=== PATIENT | male | born 1965 | race Caucasian/White ===

== ENCOUNTER 2018-05-08 09:49 | Day surgery (SDC) | payer OTHER, SELFPAY ==
[2018-05-08] VITALS (7 sets, daily range): BP systolic 116–185; BP diastolic 84–131; PULSE 80–92; RESP 16–20; TEMP 36.3–37.3; O2SAT 93–97
--- NOTE | 2018-05-08 06:29 | W.COLOREPORT ---
Date of service: 05/08/18 Colonoscopy Report Date of procedure: 05/08/18 Pre-op diagnosis general: Colon Cancer screening Post-op diagnosis procedure note: other (3 polyps, diverticulosis) Procedure: Colonoscopy with polypectomy by forceps and snare Surgeon: Tona Palomo Anesthesia proc note operative: MAC (Keturah Stein CRNA) Estimated blood loss (mL): 5 Pathology: other (3 polyps) Complications: None Disposition: observation Indications: Mr. Sinha is a pleasant 53 year old male seen in the office to discuss a screening colonoscopy. Risks, benefits and complications were reviewed and he wished to proceed. No guarantees were given or implied. Prep: Miralax/Dulcolax Procedure Start Time: 13:46 Procedure End Time: 14:48 Retraction Time: 53 minutes Findings: 3 polyps. One polyp at 45 cm was large and could have cancer. Diverticulosis Procedure Description: After informed consent was obtained the patient was taken to the procedure room and placed in a left decubitous position. Monitors were applied and a time out was done. The patients name, date of , procedure, allergies to medications and metal in their body was reviewed. The patient was then sedated. Once sedated and comfortable a rectal exam was done. External exam was normal. Internal exam revealed a normal sphincter tone and no palpable masses. The prostate normal. The scope was then introduced and retroflexed. No internal hemorrhoids were identified. The scope was then advanced to the cecum without difficulty. The TI and appendiceal orifice were identified. The prep was adequate. The scope was then slowly retracted over 53 minutes back into the rectum. One sessile polyp was remove in the proximal transverse colon with a cold forceps. The second polyp was a large pedunculated polyp in the descending colon with a hot snare. The area was tattooed with 3 cc of blue dye. Another polyp was removed in the descending colon with a cold forceps. The scope was removed and the patient was woken up and taken back to Same day surgery in stable condition. The patient tolerated the procedure well and there were no immediate complications. Follow up: Depends on final pathology
--- NOTE | 2018-05-08 06:30 | PDOC.DSDIS_ITS ---
Discharge Plan Disposition Patient Disposition: HOME Condition: Good Discharge Details Reason For Visit: Colonoscopy Attending Provider: Tona Palomo Primary Care Provider: Pricilla Sevilla Home Meds and New Rx's Prescriptions: Continue No Known Home Meds RF: 0 Discharge Instructions Instructions: Colonoscopy (DC), Diverticulosis (DC), Colorectal Polyps (DC) Additional Instructions: Findings: 3 polyps. One was large and may contain cancer Diverticulosis Follow up: depends on final pathology New Medication: none Please call if you develop: fevers >101.5 Nausea or Vomiting Abdominal pain that is not transient 1. Because there will be medication in your system for the next 24 hours, you may feel a little sleepy. Your coordination will be affected. Therefore: a. Do not drive or operate dangerous equipment for 24 hours. b. Do not drink alcohol beverages for 24 hours (not even beer). c. Plan to go home and rest for the day. 2. Generally there are no restrictions on your activity after a day or so has gone by, but you may feel a bit fatigued for a few days. 3 After you arrive home you may have a light meal and return to a normal diet as you can tolerate it without feeling sick to your stomach. 4. After surgery, you may feel pain or discomfort. This should be only transient , but if it persists please contact your doctor. 5. If there are any questions regarding the findings of your procedure, please feel free to contact your doctor. 6. If you are unable to contact your doctor with a problem, contact the ospital at [phone]. 7. Continue all your regular medications unless directed otherwise. I understand the above instructions and have no questions. Signature of Patient or Responsible Adult Escort Date/Time Name of Responsible Adult Escort Signature of Nurse Date/Time Activity:: Activity as Tolerated Diet:: As Tolerated Discharge Orders Discharge Orders: Discharge Order (Routine); Ordered 05/08/18 Ordered By: Tona Palomo DS: Diagnosis Discharge Diagnosis (1) Colorectal polyps: Status: Acute (2) Diverticulosis: Status: Acute
[2018-05-08] MEDS: Lactated Ringers 1,000 ML 80 ML IV ×2 (10:30→14:37)
--- NOTE | 2018-05-08 14:00 | BOWEL_PTH ---
PATIENT: Damon Sinha LOC: [facility] U#:[id number] AGE/SX: 53/M ROOM: RE05/08/[address]: Tona Plaomo MD : [id number] BED: DIS: 05/08/2018 SPEC #: [id number] RECD: 05/08/18 17:55 STATUS: FRED[facility] REQ #: [id number] NEHA: 05/08/18 14:[address]: Tona Palomo DEPT: Surgical Specimen RECD BY: Skye Bello ENTERED: 05/08/18 17:56 SP TYPE: Bowel OTHR DR: Pricilla Sevilla Tissues: 1 - BIOPSY BOWEL 2 - BIOPSY BOWEL 3 - BIOPSY BOWEL Procedures: GROSS AND MICRO LEVEL 4 Comments: [id number]
[2018-05-08] MEDS: Endoscopic Tattoo 5 ML SYR IJ (14:47)
[2018-05-08] MEDS: Hyoscyamine 0.125 MG SL/ORAL/CHEW SL (16:43)
[2018-05-08] MEDS: Ketorolac 30 MG/ML VIAL IVP (17:06)
--- NOTE | 2018-05-08 17:25 | DI.RAD_ITS ---
SYMPTOMS/DIAGNOSIS: ABDOMINAL PAIN S/P COLONOSCOPY WITH POLYPECTOMY FLAT AND DECUBITUS VIEWS OF THE ABDOMEN: The colon is distended with air, consistent with recent colonoscopy. There is some air within the small bowel as well. The descending colon is somewhat decompressed. No free air is seen. IMPRESSION: Colonic distention. No evidence of free air.
--- NOTE | 2018-05-08 18:08 | DI.VRAD_ITS ---
EXAM: XR Abdomen, 2 Views EXAM DATE/TIME: 05/08/2018 5:25 PM CLINICAL HISTORY: 53 years old, male; Pain; Abdominal pain; Patient HX: Abdominal pain S/P colonoscopy with polypectomy TECHNIQUE: Frontal view of the abdomen/pelvis with upright view of the abdomen. COMPARISON: No relevant prior studies available. FINDINGS: Gastrointestinal tract: The colon is distended with air. Right colon is distended over 12 cm with air there are multiple air-fluid levels. Differential includes ileus versus obstruction. Intraperitoneal space: See Gastrointestinal Tract Finding. Bones/joints: Unremarkable for age. IMPRESSION: The colon is distended with air. Right colon is distended over 12 cm with air there are multiple air-fluid levels. Differential includes ileus versus obstruction. Dictated and Authenticated by: Tamie Omalley MD. Ordering:CEASAR SUAREZ MD
--- NOTE | 2018-05-08 18:08 | W.PM.PROGNOT ---
Assessment and Plan (1) Abdominal pain: Current visit: Yes Status: Acute A\\ Cramping abdominal pain s/p Colonoscopy with polypectomy of 2 large polyps. ABDO- XRAY showed no free air to my viewing. BP decreased on discharge to 154/90 P 84 P\\ Will get the patient to go home. I have asked him to watch for increased abdominal pain, N/V and to please come back to the ER if this happens and not to wait. One of the polyps was large enough that there could be a small perforation. If he returns will nee a ct scan of the abdomen and pelvis to look for free air. Subjective Interval history since last seen: Patient started out complaining of 9/10 cramping abdominal pain. he did pass flatus and pain slowly decreased to 2/10. No N/V Exam GI Inspection: normal to inspection Palpation: soft and tender (mild RLQ tenderness and LLQ. NO guarding) Objective Objective Clinical Data: Vital Signs Temperature 97.9 F 05/08/18 17:36 Pulse 89 05/08/18 17:36 Pulse Rhythm Regular 05/08/18 10:04 Respiratory Rate 18 05/08/18 17:36 Respiratory Depth Normal 05/08/18 10:04 Blood Pressure 156/106 H 05/08/18 17:36 Pulse Oximetry 97 05/08/18 17:36 Oxygen Delivery Method Room Air 05/08/18 17:36 Oxygen Flow Rate 0 05/08/18 10:04 Pain Level 3 05/08/18 17:36 Intake & Output 05/07/18 05/08/18 05/08/18 23:59 11:59 23:59 Intake Total 1110 / 1110 Balance 1110 / 1110 Weight 239 lb 13.807 oz Intake: IV 1000 / 1000 Oral 110 / 110 Other: Emesis Description None
== END 2018-05-08 18:17 | disposition home or self-care (01) ==
PROVIDERS: PCP Nurse Practitioner Family; Visit Provider Surgery
PROC: 0DJD8ZZ Inspection of Lower Intestinal Tract, Via Natural or Artificial Opening Endoscopic (ICD-10-PCS; CPT 45378; principal; 2018-05-08 11:15)
DX: Z12.11 Encounter for screening for malignant neoplasm of colon (principal); D12.3 Benign neoplasm of transverse colon; D12.4 Benign neoplasm of descending colon; K63.5 Polyp of colon; K21.9 Gastro-esophageal reflux disease without esophagitis; F10.10 Alcohol abuse, uncomplicated; F17.200 Nicotine dependence, unspecified, uncomplicated; K57.30 Diverticulosis of large intestine without perforation or abscess without bleeding
CPT/HCPCS: 45380; 45381; 45385; 88305; NC; 74019; J1885; J3010; J3490

== ENCOUNTER 2018-05-10 09:21 | Inpatient (IN) | payer OTHER, SELFPAY ==
[2018-05-10] VITALS (11 sets, daily range): BP systolic 127–164; BP diastolic 72–99; PULSE 83–104; RESP 18–24; TEMP 36.7–39; O2SAT 93–98
--- NOTE | 2018-05-10 09:39 | DI.CT_ITS ---
SYMPTOMS/DIAGNOSIS: ABDOMINAL PAIN [address] OF THE ABDOMEN AND PELVIS: There are no prior comparison exams. Images were performed from the lung bases through the ischial tuberosities after IV and without oral contrast. Free air is noted, greatest in the upper abdomen. There is no focal area of bowel wall thickening. There is no free fluid. There is mild dilatation of small bowel but no definite obstruction. The appendix appears normal and projects anterior at the level of the iliac crest. Numerous diverticula are noted. A right- sided aortic arch is noted. The liver, gallbladder, spleen, pancreas, adrenals and kidneys as well as bladder and prostate are unremarkable. IMPRESSION: Free air. There is diverticulosis, but no focal area of perforation or wall thickening is demonstrated.
--- NOTE | 2018-05-10 09:44 | W.ED.GENAD ---
Discharge Plan Discharge Details Chief Complaint: Abd Prob Reason For Visit: PERFORATED BOWEL Admit Date/Time: 05/10/18 12:07 Admit Provider: Loc Rhoades Attending Provider: Loc Rhoades Primary Care Provider: Pricilla Sevilla ED Provider: Jesus Enriquez Discharge Data Discharge Date/Time-TO BE ENTERED AT DEPARTURE: 05/10/18 17:28 Medical Decision Making 10:20 --53-year-old male presents 2 days status post colonoscopy and polypectomy here with diffuse abdominal pain that is worsening. Peritoneal findings including guarding and rebound tenderness. Concern for perforated bowel. I called and spoke with Dr. Rhoades to alert him to condition. Will obtain stat CT abdomen and pelvis. Dilaudid IV for pain. -- CT interpreted by radiology: free air noted. Dr. Rhoades contacted and will admit the patient. Will start antibiotics. Bridging orders requested to the floor. Care transitioned to Dr. Rhoades at time of admission. -- Labs reviewed. HPI General Mode of arrival: ambulatory. Date/Time Provider Initiated Documentation: 05/10/18 09:38. Limitations to Documentation: no limitations. Information obtained by: patient. HPI Narrative: 53-year-old male with history of colorectal polyps, presents 2 days status post colonoscopy with polypectomy with chief complaint of abdominal pain. Abdominal pain is severe. Constant since yesterday. Localized diffusely but worse on the right abdomen. Pain feels sharp. No associated vomiting. Related Data Home Medications Medication Instructions Recorded Confirmed Unknown [No Known Home Meds] 06/13/16 05/10/18 Allergies Allergy/AdvReac Type Severity Reaction Status Date / Time shrimp Allergy Severe Anaphylaxsi Uncoded 05/10/18 09:31 s General Stated Complaint: Abd Prob KANG: 3 Review of Systems Review of Systems All systems reviewed & are unremarkable except as noted in HPI and below Constitutional Reports fever(s) (subjective) Cardiovascular Denies dyspnea Respiratory Denies dyspnea Gastrointestinal Reports as per HPI Exam Const General: cooperative and uncomfortable [facility] Head: normocephalic and atraumatic Mouth: moist mucous membranes Eyes Conjunctivae: normal conjunctivae Sclera: normal sclerae Neck Neck: trachea midline and supple Resp Auscultation: clear to auscultation bilaterally, no rales, no rhonchi and no wheezes Cardio Jugular venous pressure: no JVD Rate: regular rate and not tachycardic Rhythm: regular rhythm GI Palpation: soft, not firm, guarding, no masses, not rigid and tender (diffuse) Skin General skin exam: no rashes or lesions noted Neuro General: alert, awake, oriented x3 and tone normal Extrem General: no edema Psych Appearance: grossly normal Mental Status: mental status grossly normal Speech and Movement: speech and movement normal Course Vital Signs Temperature 36.7 C 05/10/18 09:25 Pulse 102 H 05/10/18 09:25 Respiratory Rate 24 05/10/18 09:25 Blood Pressure 164/99 H 05/10/18 09:25 Pulse Oximetry 94 L 05/10/18 09:25 Temperature 36.7 C 05/10/18 09:25 Temperature Source Skin 05/10/18 09:25 Pulse 102 H 05/10/18 09:25 Respiratory Rate 24 05/10/18 09:25 Respiratory Effort 05/10/18 09:28 Blood Pressure 164/99 H 05/10/18 09:25 Blood Pressure Position Sitting 05/10/18 09:25 Pulse Oximetry 94 L 05/10/18 09:25 Oxygen Delivery Method Room Air 05/10/18 09:25 Oxygen Flow Rate 0 05/10/18 09:25 Pain Level 05/10/18 09:25
[2018-05-10] MEDS: Lactated Ringers 1,000 ML 1000 ML IV (09:55)
--- NOTE | 2018-05-10 09:57 | ED.GENADUL_ITS ---
Discharge Plan Discharge Details Chief Complaint: Abd Prob Reason For Visit: PERFORATED BOWEL Admit Date/Time: 05/10/18 12:07 Admit Provider: Loc Rhoades Attending Provider: Loc Rhoades Primary Care Provider: Pricilla Sevilla ED Provider: Jesus Enriquez Discharge Data Discharge Date/Time-TO BE ENTERED AT DEPARTURE: 05/10/18 17:28 Medical Decision Making 10:20 --53-year-old male presents 2 days status post colonoscopy and polypectomy here with diffuse abdominal pain that is worsening. Peritoneal findings including guarding and rebound tenderness. Concern for perforated bowel. I called and spoke with Dr. Rhoades to alert him to condition. Will obtain stat CT abdomen and pelvis. Dilaudid IV for pain. -- CT interpreted by radiology: free air noted. Dr. Rhoades contacted and will admit the patient. Will start antibiotics. Bridging orders requested to the floor. Care transitioned to Dr. Rhoades at time of admission. -- Labs reviewed. HPI General Mode of arrival: ambulatory . Date/Time Provider Initiated Documentation: 05/10/18 09:38 . Limitations to Documentation: no limitations . Information obtained by: patient . HPI Narrative: 53-year-old male with history of colorectal polyps, presents 2 days status post colonoscopy with polypectomy with chief complaint of abdominal pain. Abdominal pain is severe. Constant since yesterday. Localized diffusely but worse on the right abdomen. Pain feels sharp. No associated vomiting. Related Data Home Medications Medication Instructions Recorded Confirmed Unknown [No Known Home Meds] 06/13/16 05/10/18 Allergies Allergy/AdvReac Type Severity Reaction Status Date / Time shrimp Allergy Severe Anaphylaxsi Uncoded 05/10/18 09:31 s General Stated Complaint: Abd Prob KANG: 3 Review of Systems Review of Systems All systems reviewed & are unremarkable except as noted in HPI and below Constitutional Reports fever(s) (subjective) Cardiovascular Denies dyspnea Respiratory Denies dyspnea Gastrointestinal Reports as per HPI Exam Const General: cooperative and uncomfortable [facility] Head: normocephalic and atraumatic Mouth: moist mucous membranes Eyes Conjunctivae: normal conjunctivae Sclera: normal sclerae Neck Neck: trachea midline and supple Resp Auscultation: clear to auscultation bilaterally, no rales, no rhonchi and no wheezes Cardio Jugular venous pressure: no JVD Rate: regular rate and not tachycardic Rhythm: regular rhythm GI Palpation: soft, not firm, guarding, no masses, not rigid and tender (diffuse) Skin General skin exam: no rashes or lesions noted Neuro General: alert, awake, oriented x3 and tone normal Extrem General: no edema Psych Appearance: grossly normal Mental Status: mental status grossly normal Speech and Movement: speech and movement normal Course Vital Signs Temperature 36.7 C 05/10/18 09:25 Pulse 102 H 05/10/18 09:25 Respiratory Rate 24 05/10/18 09:25 Blood Pressure 164/99 H 05/10/18 09:25 Pulse Oximetry 94 L 05/10/18 09:25 Temperature 36.7 C 05/10/18 09:25 Temperature Source Skin 05/10/18 09:25 Pulse 102 H 05/10/18 09:25 Respiratory Rate 24 05/10/18 09:25 Respiratory Effort 05/10/18 09:28 Blood Pressure 164/99 H 05/10/18 09:25 Blood Pressure Position Sitting 05/10/18 09:25 Pulse Oximetry 94 L 05/10/18 09:25 Oxygen Delivery Method Room Air 05/10/18 09:25 Oxygen Flow Rate 0 05/10/18 09:25 Pain Level 05/10/18 09:25
[2018-05-10] MEDS: HYDROmorphone 2 MG/ML VIAL 1 MG IVP ×2 (10:00→11:48)
[2018-05-10] MEDS: Omnipaque 350 MG/ML 100 ML BTL IJ (10:01)
[2018-05-10 10:11] LABS: Abs Immature Grans 0.02 k/cumm (0.0-0.09); Absolute Basophil Count 0.03 k/cumm (0.0-0.2); Absolute Eosinophil Count 0.01 k/cumm (0.0-0.7); Absolute Lymphocyte Count 0.65 k/cumm (1.2-3.4); Absolute Monocyte Count 0.75 k/cumm (0.11-0.7); Absolute Neutrophil Count 5.25 k/cumm (1.2-6.7); Basophils % 0.4; Eosinophils % 0.1; HCT 44.3 % (40.0-50.0); HGB 15.4 g/dL (13.5-17.5); Immature Grans % 0.3; Lymphocytes % 9.7; Mean Corp. HGB Concentration 34.8 g/dL (32.0-36.0); Mean Corpuscular Hemoglobin 31.6 pg (27.0-33.0); Mean Corpuscular Volume 90.8 fL (80-95); Mean Platelet Volume 8.3 fL (8.0-11.0); Monocytes % 11.2; Neutrophils % 78.3; Platelet Count 158 x1000/uL (130-400); RBC 4.88 m/cumm (4.50-6.00); RBC Distribution Width 12.3 % (11.8-14.1); White Blood Cell Count 6.71 k/cumm (4.4-10.8)
[2018-05-10 10:24] LABS: ALT 31 U/L (12-78); AST 28 U/L (15-37); Albumin 3.8 g/dL (3.4-5.0); Alkaline Phosphatase 63 U/L (46-116); Anion Gap 9.1 mmol/L (3-11); BUN 10 mg/dL (7-18); Bilirubin, Total 0.7 mg/dL (0.2-1.0); CO2 27.9 mmol/L (21.0-32.0); CREATININE 1.11 mg/dL (0.70-1.30); Chloride 98 mmol/L (98-107); Glucose 128 mg/dL (70-100); Lipase 135 U/L (73-393); Potassium 3.6 mmol/L (3.5-5.1); Sodium 135 mmol/L (136-145); Total Protein 7.4 g/dL (6.4-8.2)
[2018-05-10] MEDS: Lactated Ringers 1,000 ML 125 ML IV ×2 (11:14→12:23)
[2018-05-10] MEDS: PIPERACILLIN/TAZO 4.5 GM in Normal Saline 100 ML IVPB (11:49)
--- NOTE | 2018-05-10 12:59 | HPE_ITS ---
Date of service: 05/10/18 Time of Service: 12:55 Assessment and Plan (1) Bowel perforation: Current visit: Yes Status: Acute A// 53 y/o male 2 days s/p colonoscopy with polypectomy presents with progressively worsening abdominal pain that is associated with upper back and right shoulder pain. CT scan results demonstrate free air with no focal area of perforation or wall thickening. P// Antibiotics- Zosyn Pain management- Scheduled Toradol and tylenol. He also has Dilaudid PRN Diet- NPO; May have ice chips Fluids- [id number] to run at 125ml/hr Hypertensive- Will continue to monitor, most likely secondary to pain DVT Prophylaxis- Jeovanny Reviewed the patient diagnostic findings and physical examination findings with PA , agree with findings and plan as detailed by Leann Reed PA-C. Essentially admission for conservative therapy of bowel rest, abx, pain control , will watch for withdrawal symptoms, and cover nicotene cravings. Did discuss with Mr. Sinha possible failure of conservative therapy, which would require surgical intervention. History of Present Illness Chief Complaint: Abdominal Pain Narrative: 53 y/o male s/p colonoscopy with polypectomy on 05/08/18. Presents with complaints of severe abdominal pain that has progressively worsened over the past two days. Starting this morning this pain was constant and sharp. He also complains of associated upper back and right shoulder pain that is constant but dull ache that increases with coughing and movement. Reports passing flatus and (+) BM this morning which was diarrhea. He denies N/V. Review of Systems Constitutional Reports anorexia, Reports chills and Reports fever(s) Cardiovascular Denies chest pain, Denies chest pain at rest, Reports diaphoresis, Denies dyspnea and Denies dyspnea on exertion Respiratory Denies dyspnea, Denies dyspnea on exertion and Denies wheezing Gastrointestinal Reports abdominal pain, Denies hematochezia, Denies change in bowel habits and Reports diarrhea Musculoskeletal Comments: Upper back and right shoulder pain that increases with movement and coughing. Allergic/Immunologic Denies wheezing Meds Home Medications Medication Instructions Recorded Confirmed Type Unknown [No Known Home Meds] 06/13/16 05/10/18 History Allergies Allergy/AdvReac Type Severity Reaction Status Date / Time shrimp Allergy Severe Anaphylaxsi Uncoded 05/10/18 09:31 s Exam Const General: cooperative and in distress moderate Nutritional Appearance: obese Orientation: alert and oriented x3 Resp Effort & Inspection: normal respiratory effort Auscultation: clear to auscultation bilaterally, no crackles and no wheezes Cardio Jugular venous pressure: no JVD Rate: regular rate and tachycardic Rhythm: regular rhythm Heart Sounds: S1 normal, S2 normal, no click, no gallops and no murmurs GI Inspection: distended Palpation: soft, guarding and tender in the RLQ, in the RUQ and with rebound tenderness Auscultation: normal bowel sounds Results Labs : 05/10/18 09:50 05/10/18 09:50 Laboratory Results - last 24 hr 05/10/18 05/10/18 05/10/18 09:50 09:50 09:50 WBC 6.71 RBC 4.88 Hgb 15.4 Hct 44.3 MCV 90.8 MCH 31.6 MCHC 34.8 RDW 12.3 Plt Count 158 MPV 8.3 Immature Gran % 0.3 Neutrophils % 78.3 Lymphocytes % 9.7 Monocytes % 11.2 Eosinophils % 0.1 Basophils % 0.4 Absolute Neutrophils 5.25 Absolute Lymphocytes 0.65 L Absolute Monocytes 0.75 H Absolute Eosinophils 0.01 Absolute Basophils 0.03 Sodium 135 L Potassium 3.6 Chloride 98 Carbon Dioxide 27.9 Anion Gap 9.1 BUN 10 Creatinine 1.11 Estimated GFR/1.73 m2 >= 60.00 Glucose 128 H Calcium 9.0 Total Bilirubin 0.7 AST 28 ALT 31 Alkaline Phosphatase 63 Total Protein 7.4 Albumin 3.8 Lipase 135 Patient ABO/Rh A Positive Antibody Screen Negative Last Vital Signs Temp 37.0 C 05/10/18 11:13 Pulse 93 H 05/10/18 11:13 Resp 24 05/10/18 11:13 BP 149/93 H 05/10/18 11:13 Pulse Ox 98 05/10/18 11:13
[2018-05-10] MEDS: POTASSIUM CHLORIDE/D5-0.45NACL 1,000 ML 125 MEQ IV ×2 (13:58→22:21)
[2018-05-10] MEDS: Normal Saline Flush 10 ML SYR IVP (15:13)
[2018-05-10] MEDS: Pantoprazole 40 MG VIAL IVP (15:14)
[2018-05-10] MEDS: Ketorolac 30 MG/ML VIAL IVP ×2 (15:15→22:21)
[2018-05-10] MEDS: Acetaminophen 650 MG SUPP PR (15:43)
[2018-05-10] MEDS: Enoxaparin 40 MG/0.4 ML SYR SC (20:04)
[2018-05-10] MEDS: PIPERACILLIN/TAZO 3.375 GM in Normal Saline 50 ML IVPB (20:04)
[2018-05-10] MEDS: HYDROmorphone 2 MG/ML VIAL 0.5 MG IVP (22:53)
[2018-05-11 00:09] VITALS: BP 140/90; PULSE 82; RESP 18; TEMP 37.8; O2SAT 95
[2018-05-11] MEDS: PIPERACILLIN/TAZO 3.375 GM in Normal Saline 50 ML IVPB ×4 (01:51→20:15)
[2018-05-11 03:27] VITALS: BP 143/97; PULSE 80; RESP 20; TEMP 36.9; O2SAT 97
[2018-05-11] MEDS: POTASSIUM CHLORIDE/D5-0.45NACL 1,000 ML 125 MEQ IV ×2 (06:47→17:46)
--- NOTE | 2018-05-11 06:58 | W.PM.PROGNOT ---
Assessment and Plan (1) Bowel perforation: Current visit: Yes Status: Acute A\\ Slight improvement in symptoms since yesterday. Did have one spike in pain at 11 last night. Has been comfortable since then. + BM, + Flatus, Hungry Labs Pending XRay's pending P\\ 1. Diet: Continue NPO for now. Await results of labs and Xray's 2. Activity: up ad marcia 3. Bowelo perforation: Continue with conservative management. Await results of Xray and labs. Subjective Interval history since last seen: Mr. Sinha reports that in the middle of the night is RUQ and Right shoulder pain became severe and was unbearable, he was given Dilaudid with good effect. He reports following this his pain did not return to the level of intensity and that he was able to get some sleep. He reports having a BM this morning. Denies N/V. Exam Const General: cooperative, comfortable and no acute distress Orientation: alert and oriented x3 Resp Effort & Inspection: normal respiratory effort Auscultation: clear to auscultation bilaterally, no crackles and no wheezes Cardio Rate: regular rate and tachycardic Rhythm: regular rhythm Heart Sounds: S1 normal, S2 normal, no click, no gallops and no murmurs GI Inspection: distended Palpation: firm in the LLQ, no guarding and tender in the epigastrum and in the RUQ; with no rebound tenderness Auscultation: normal bowel sounds Objective Objective Clinical Data: Abnormal lab results 05/10/18 05/10/18 Range/Units 09:50 09:50 Absolute Lymphocytes 0.65 L (1.2-3.4) k/cumm Absolute Monocytes 0.75 H (0.11-0.7) k/cumm Sodium 135 L (136-145) mmol/L Glucose 128 H (70-100) mg/dL Vital Signs Temperature 36.9 C 05/11/18 03:27 Temperature Source Tympanic 05/11/18 03:27 Pulse 80 05/11/18 03:27 Pulse Rhythm Regular 05/10/18 19:35 Respiratory Rate 20 05/11/18 03:27 Respiratory Effort 05/10/18 19:35 Blood Pressure 143/97 H 05/11/18 03:27 Blood Pressure Position Sitting 05/10/18 09:25 Pulse Oximetry 97 05/11/18 03:27 Oxygen Delivery Method Room Air 05/11/18 03:27 Oxygen Flow Rate 0 05/11/18 03:27 Pain Level 8 05/10/18 22:53 Comment 05/11/18 03:27 Intake & Output 05/10/18 05/10/18 05/11/18 11:59 23:59 11:59 Intake Total 1000 / 1000 2347.917 / 2347.917 1050 / 1050 Output Total 1250 / 1250 Balance 1000 / 1000 1097.917 / 6632.261 9210 / 1050 Weight 111.13 kg 107.3 kg Intake: IV 1000 / 1000 2347.917 / 2347.917 1050 / 1050 Output: Urine 1250 / 1250 Other: Urine Color Yellow Urine Appearance Clear Stool Size Large Stool Characteristics Brown Voiding Methods Toilet Laboratory Results WBC 6.71 k/cumm (4.4-10.8) 05/10/18 09:50 RBC 4.88 m/cumm (4.50-6.00) 05/10/18 09:50 Hgb 15.4 g/dL (13.5-17.5) 05/10/18 09:50 Hct 44.3 % (40.0-50.0) 05/10/18 09:50 MCV 90.8 fL (80-95) 05/10/18 09:50 MCH 31.6 pg (27.0-33.0) 05/10/18 09:50 MCHC 34.8 g/dL (32.0-36.0) 05/10/18 09:50 RDW 12.3 % (11.8-14.1) 05/10/18 09:50 Plt Count 158 x1000/uL (130-400) 05/10/18 09:50 MPV 8.3 fL (8.0-11.0) 05/10/18 09:50 Immature Gran % 0.3 05/10/18 09:50 Neutrophils % 78.3 05/10/18 09:50 Lymphocytes % 9.7 05/10/18 09:50 Monocytes % 11.2 05/10/18 09:50 Eosinophils % 0.1 05/10/18 09:50 Basophils % 0.4 05/10/18 09:50 Absolute Neutrophils 5.25 k/cumm (1.2-6.7) 05/10/18 09:50 Absolute Lymphocytes 0.65 k/cumm (1.2-3.4) L 05/10/18 09:50 Absolute Monocytes 0.75 k/cumm (0.11-0.7) H 05/10/18 09:50 Absolute Eosinophils 0.01 k/cumm (0.0-0.7) 05/10/18 09:50 Absolute Basophils 0.03 k/cumm (0.0-0.2) 05/10/18 09:50 Sodium 135 mmol/L (136-145) L 05/10/18 09:50 Potassium 3.6 mmol/L (3.5-5.1) 05/10/18 09:50 Chloride 98 mmol/L (98-107) 05/10/18 09:50 Carbon Dioxide 27.9 mmol/L (21.0-32.0) 05/10/18 09:50 Anion Gap 9.1 mmol/L (3-11) 05/10/18 09:50 BUN 10 mg/dL (7-18) 05/10/18 09:50 Creatinine 1.11 mg/dL (0.70-1.30) 05/10/18 09:50 Estimated GFR/1.73 m2 >= 60.00 (mL/min/1.73m2) 05/10/18 09:50 Glucose 128 mg/dL (70-100) H 05/10/18 09:50 Calcium 9.0 mg/dL (8.5-10.1) 05/10/18 09:50 Total Bilirubin 0.7 mg/dL (0.2-1.0) 05/10/18 09:50 AST 28 U/L (15-37) 05/10/18 09:50 ALT 31 U/L (12-78) 05/10/18 09:50 Alkaline Phosphatase 63 U/L (46-116) 05/10/18 09:50 Total Protein 7.4 g/dL (6.4-8.2) 05/10/18 09:50 Albumin 3.8 g/dL (3.4-5.0) 05/10/18 09:50 Lipase 135 U/L (73-393) 05/10/18 09:50 Patient ABO/Rh A Positive 05/10/18 09:50 Antibody Screen Negative 05/10/18 09:50
--- NOTE | 2018-05-11 07:15 | W.PM.PROGNOT ---
Assessment and Plan (1) Bowel perforation: Current visit: Yes Status: Acute A\\ Slight improvement in symptoms since yesterday. Did have one spike in pain at 11 last night. Has been comfortable since then. + BM, + Flatus, Hungry Labs Pending XRay's pending P\\ 1. Diet: Continue NPO for now. Await results of labs and Xray's 2. Activity: up ad marcia 3. Bowelo perforation: Continue with conservative management. Await results of Xray and labs. Subjective Interval history since last seen: Feeling a little better. He did have one spike of pain at 11 pm last night. Was given 0.2 of dilauded and pain went away. No N/V. Had a soft BM last night. Passing flatus. Hungry. Still feeling a bit bloated. Exam Const General: healthy appearing, comfortable and no acute distress Resp Auscultation: clear to auscultation bilaterally Cardio Rate: regular rate Rhythm: regular rhythm Heart Sounds: no click, no gallops and no murmurs GI Inspection: normal to inspection Palpation: soft, no hepatosplenomegaly and tender (mild RLQ and RUQ. No guarding today) Auscultation: normal bowel sounds Objective Objective Clinical Data: Abnormal lab results 05/10/18 05/10/18 Range/Units 09:50 09:50 Absolute Lymphocytes 0.65 L (1.2-3.4) k/cumm Absolute Monocytes 0.75 H (0.11-0.7) k/cumm Sodium 135 L (136-145) mmol/L Glucose 128 H (70-100) mg/dL Vital Signs Temperature 98.4 F 05/11/18 03:27 Temperature Source Tympanic 05/11/18 03:27 Pulse 80 05/11/18 03:27 Pulse Rhythm Regular 05/10/18 19:35 Respiratory Rate 20 05/11/18 03:27 Respiratory Effort 05/10/18 19:35 Blood Pressure 143/97 H 05/11/18 03:27 Blood Pressure Position Sitting 05/10/18 09:25 Pulse Oximetry 97 05/11/18 03:27 Oxygen Delivery Method Room Air 05/11/18 03:27 Oxygen Flow Rate 0 05/11/18 03:27 Pain Level 8 05/10/18 22:53 Comment 05/11/18 03:27 Intake & Output 05/10/18 05/10/18 05/11/18 11:59 23:59 11:59 Intake Total 1000 / 1000 2347.917 / 2347.917 1050 / 1050 Output Total 1250 / 1250 Balance 1000 / 1000 1097.917 / 5496.187 5348 / 1050 Weight 244 lb 15.995 oz 236 lb 8.896 oz Intake: IV 1000 / 1000 2347.917 / 2347.917 1050 / 1050 Output: Urine 1250 / 1250 Other: Urine Color Yellow Urine Appearance Clear Stool Size Large Stool Characteristics Brown Voiding Methods Toilet Laboratory Results WBC 6.71 k/cumm (4.4-10.8) 05/10/18 09:50 RBC 4.88 m/cumm (4.50-6.00) 05/10/18 09:50 Hgb 15.4 g/dL (13.5-17.5) 05/10/18 09:50 Hct 44.3 % (40.0-50.0) 05/10/18 09:50 MCV 90.8 fL (80-95) 05/10/18 09:50 MCH 31.6 pg (27.0-33.0) 05/10/18 09:50 MCHC 34.8 g/dL (32.0-36.0) 05/10/18 09:50 RDW 12.3 % (11.8-14.1) 05/10/18 09:50 Plt Count 158 x1000/uL (130-400) 05/10/18 09:50 MPV 8.3 fL (8.0-11.0) 05/10/18 09:50 Immature Gran % 0.3 05/10/18 09:50 Neutrophils % 78.3 05/10/18 09:50 Lymphocytes % 9.7 05/10/18 09:50 Monocytes % 11.2 05/10/18 09:50 Eosinophils % 0.1 05/10/18 09:50 Basophils % 0.4 05/10/18 09:50 Absolute Neutrophils 5.25 k/cumm (1.2-6.7) 05/10/18 09:50 Absolute Lymphocytes 0.65 k/cumm (1.2-3.4) L 05/10/18 09:50 Absolute Monocytes 0.75 k/cumm (0.11-0.7) H 05/10/18 09:50 Absolute Eosinophils 0.01 k/cumm (0.0-0.7) 05/10/18 09:50 Absolute Basophils 0.03 k/cumm (0.0-0.2) 05/10/18 09:50 Sodium 135 mmol/L (136-145) L 05/10/18 09:50 Potassium 3.6 mmol/L (3.5-5.1) 05/10/18 09:50 Chloride 98 mmol/L (98-107) 05/10/18 09:50 Carbon Dioxide 27.9 mmol/L (21.0-32.0) 05/10/18 09:50 Anion Gap 9.1 mmol/L (3-11) 05/10/18 09:50 BUN 10 mg/dL (7-18) 05/10/18 09:50 Creatinine 1.11 mg/dL (0.70-1.30) 05/10/18 09:50 Estimated GFR/1.73 m2 >= 60.00 (mL/min/1.73m2) 05/10/18 09:50 Glucose 128 mg/dL (70-100) H 05/10/18 09:50 Calcium 9.0 mg/dL (8.5-10.1) 05/10/18 09:50 Total Bilirubin 0.7 mg/dL (0.2-1.0) 05/10/18 09:50 AST 28 U/L (15-37) 05/10/18 09:50 ALT 31 U/L (12-78) 05/10/18 09:50 Alkaline Phosphatase 63 U/L (46-116) 05/10/18 09:50 Total Protein 7.4 g/dL (6.4-8.2) 05/10/18 09:50 Albumin 3.8 g/dL (3.4-5.0) 05/10/18 09:50 Lipase 135 U/L (73-393) 05/10/18 09:50 Patient ABO/Rh A Positive 05/10/18 09:50 Antibody Screen Negative 05/10/18 09:50
[2018-05-11 07:48] LABS: Abs Immature Grans 0.01 k/cumm (0.0-0.09); Absolute Basophil Count 0.05 k/cumm (0.0-0.2); Absolute Eosinophil Count 0.09 k/cumm (0.0-0.7); Absolute Lymphocyte Count 0.79 k/cumm (1.2-3.4); Absolute Monocyte Count 0.74 k/cumm (0.11-0.7); Absolute Neutrophil Count 3.21 k/cumm (1.2-6.7); Eosinophils % 1.8; HCT 41.4 % (40.0-50.0); Immature Grans % 0.2; Lymphocytes % 16.2; Mean Corp. HGB Concentration 33.8 g/dL (32.0-36.0); Mean Corpuscular Hemoglobin 31.1 pg (27.0-33.0); Mean Platelet Volume 8.3 fL (8.0-11.0); Monocytes % 15.1; Neutrophils % 65.7; Platelet Count 157 x1000/uL (130-400); RBC Distribution Width 12.2 % (11.8-14.1); White Blood Cell Count 4.89 k/cumm (4.4-10.8)
[2018-05-11 07:58] LABS: Anion Gap 9.4 mmol/L (3-11); BUN 9 mg/dL (7-18); C-Reactive Protein 13.95 mg/dL (0.0-0.3); CO2 27.6 mmol/L (21.0-32.0); CREATININE 1.02 mg/dL (0.70-1.30); Calcium 8.8 mg/dL (8.5-10.1); Chloride 100 mmol/L (98-107); Glucose 110 mg/dL (70-100); Potassium 3.4 mmol/L (3.5-5.1); Sodium 137 mmol/L (136-145)
--- NOTE | 2018-05-11 08:18 | DI.RAD_ITS ---
SYMPTOMS/DIAGNOSIS: F/U BOWEL PERFORATION PA CHEST: The heart is mildly enlarged. Aortic arch is right-sided. There is a large quantity of free intraperitoneal air projected under the diaphragm as noted on yesterday's CT. The lungs are grossly clear and well expanded. CONCLUSION: Free intraperitoneal air is noted. ABDOMEN: Three views were obtained. Free intraperitoneal air again noted as seen on yesterday's CT. Mild colonic dilatation noted. Apparent right-sided gastric fundus. No gross small bowel dilatation seen. CONCLUSION: Nonspecific appearance of the abdomen with free intraperitoneal air as described above.
[2018-05-11 08:35] LABS: ESR 35 MM/HR (1-20)
[2018-05-11] MEDS: ACETAMINOPHEN 1,000 MG/100 ML BTL 400 MG IVPB ×3 (08:50→20:22)
--- NOTE | 2018-05-11 10:16 | PHARADMIT ---
Addendum entered by Driss Jalloh III 05/12/18 14:16: Pharmacy Note Subjective MD advancing diet to clears, passing flatus,BM Objective VS-OK BP-158/97 Pain: 0/10 Mag-1.9 WBC-3.54 H&H-Plts-oK had BM Assessment Zosyn continues for now. Tylenol IV prn for pain Plan did no address future plan Original Note: Admission Pharmacy Clinical Review PERFORATED BOWEL Code Status Full Code Current Weight Wgt- 107.3 kg Renally Cleared and Narrow Therapeutic Index Meds CrCl~ 91 mL/min Meds-OK QTc Value / Action Taken NA BP Control, Fever BP- 143/97 Tmax- 36.9C Electrolytes reviewed Na- 137 K+3.4 DVT Prophylaxis Lovenox 40mg Opiate Usage / Scheduled Bowel Regimen Ordered Yes No Plt/SCr for Heparin / Enoxaparin Plts-157 SCr- 1.02 INR for Warfarin na H/H stable, WBC/Bands H&H- 14.0/41.4 WBC-4.89 Antibiotic appropriateness Zosyn, Cultures and Sensitivities none Surgical ABX d/c within 24 hr na DM control / Insulin Dosing BG- 110 Heart Failure (Check EF%) (ALEX's, B-Block, Diuretics) none IV to PO Switch No Home Meds Reviewed Yes Home Meds Not Ordered No Known Home Meds Comments
[2018-05-11 11:04] VITALS: BP 131/91; PULSE 74; RESP 20; TEMP 37.1; O2SAT 95
--- NOTE | 2018-05-11 12:15 | PDOC.CMIN ---
Care Management Initial Assess REASON FOR HOSPITALIZATION:: Perforated Bowel PAST MEDICAL HISTORY/PAST SURGICAL HISTORY:: Bowel perforation, abdominal pain, diverticulosis, colorectal polyps, foreign body in esophagus, alcohol abuse, anxiety, GERD, plantar fascitis, colonoscopy, EGD, vascular ring left side of chest, marijuana, beer and chewing tobacco use. PREVIOUS FUNCTIONAL STATUS/SOCIAL/FAMILY SUPPORTS:: Damon resides alone in [place], [place]. 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 He reports a supportive network of friends. He is independent with all ADLs in the community. CURRENT FUNCTIONAL STATUS:: Damon is lying in bed, elevated. He is open to discussion and forthcoming with information. ADVANCE DIRECTIVES:: None on file at [facility]. Has patient been provided with information about the portal?: Yes Did the patient sign up for the portal?: Yes (previously) CODE STATUS:: Full Code INSURANCE COVERAGE / FINANCIAL ISSUES:: BC BS Other CURRENT HOME/COMMUNITY SERVICES/EQUIPMENT:: No current services or equipment utilized. PRIMARY CARE PHYSICIAN:: Pricilla Sevilla POTENTIAL DISCHARGE NEEDS:: Follow up appointments with surgical services and PCP. PATIENT/FAMILY EDUCATION NEEDS:: Review of discharge instructions, discuss Ask Me Three. ANTICIPATED BARRIERS TO DISCHARGE:: None identified. TRANSPORTATION:: Via private vehicle with a friend. PLAN:: Damon will be on bowel rest, with IV Abx, his pain will be managed and he will be monitored for withdrawal symptoms and provided nicotene replacement. Per MD if conservative therapy is unsuccessful; surgical intervention may be required. CM will continue to monitor and support discharge considerations.
--- NOTE | 2018-05-11 12:48 | INITIAL_ITS ---
Care Management Initial Assess REASON FOR HOSPITALIZATION:: Perforated Bowel PAST MEDICAL HISTORY/PAST SURGICAL HISTORY:: Bowel perforation, abdominal pain, diverticulosis, colorectal polyps, foreign body in esophagus, alcohol abuse, anxiety, GERD, plantar fascitis, colonoscopy, EGD, vascular ring left side of chest, marijuana, beer and chewing tobacco use. PREVIOUS FUNCTIONAL STATUS/SOCIAL/FAMILY SUPPORTS:: Damon resides alone in [place], [place]. 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 He reports a supportive network of friends. He is independent with all ADLs in the community. CURRENT FUNCTIONAL STATUS:: Damon is lying in bed, elevated. He is open to discussion and forthcoming with information. ADVANCE DIRECTIVES:: None on file at [facility]. Has patient been provided with information about the portal?: Yes Did the patient sign up for the portal?: Yes (previously) CODE STATUS:: Full Code INSURANCE COVERAGE / FINANCIAL ISSUES:: BC BS Other CURRENT HOME/COMMUNITY SERVICES/EQUIPMENT:: No current services or equipment utilized. PRIMARY CARE PHYSICIAN:: Pricilla Sevilla POTENTIAL DISCHARGE NEEDS:: Follow up appointments with surgical services and PCP. PATIENT/FAMILY EDUCATION NEEDS:: Review of discharge instructions, discuss Ask Me Three. ANTICIPATED BARRIERS TO DISCHARGE:: None identified. TRANSPORTATION:: Via private vehicle with a friend. PLAN:: Damon will be on bowel rest, with IV Abx, his pain will be managed and he will be monitored for withdrawal symptoms and provided nicotene replacement. Per MD if conservative therapy is unsuccessful; surgical intervention may be required. CM will continue to monitor and support discharge considerations.
[2018-05-11] MEDS: Normal Saline Flush 10 ML SYR IVP (14:39)
[2018-05-11] MEDS: Pantoprazole 40 MG VIAL IVP (14:40)
--- NOTE | 2018-05-11 14:49 | W.PM.PROGNOT ---
Assessment and Plan (1) Bowel perforation: Current visit: Yes Status: Acute A\\ Improvement in symptoms since this am + BM, + Flatus, Hungry P\\ 1. Diet: Will advance to sips of clears 2. Activity: up ad marcia 3. Bowel perforation: Continuo with Abx and start sips of clears Patient signed out to Dr. Zambrano Subjective Interval history since last seen: Feeling better. No spikes in pain like last night. has been up and walking. Passing flatus and had a BM. Is hungry. Exam GI Palpation: soft and tender (Upper abdomen- no rebound or guarding) Auscultation: normal bowel sounds Objective Objective Clinical Data: Abnormal lab results 05/11/18 05/11/18 Range/Units 07:25 07:25 Absolute Lymphocytes 0.79 L (1.2-3.4) k/cumm Absolute Monocytes 0.74 H (0.11-0.7) k/cumm ESR 35 H (1-20) MM/HR Potassium 3.4 L (3.5-5.1) mmol/L Glucose 110 H (70-100) mg/dL C-Reactive Protein 13.95 H (0.0-0.3) mg/dL Vital Signs Temperature 98.8 F 05/11/18 11:04 Temperature Source Tympanic 05/11/18 11:04 Pulse 74 05/11/18 11:04 Pulse Rhythm Regular 05/11/18 08:10 Respiratory Rate 20 05/11/18 11:04 Respiratory Effort 05/11/18 08:10 Blood Pressure 131/91 H 05/11/18 11:04 Blood Pressure Position Sitting 05/10/18 09:25 Pulse Oximetry 95 05/11/18 11:04 Oxygen Delivery Method Room Air 05/11/18 11:04 Oxygen Flow Rate 0 05/11/18 11:04 Pain Level 0 05/11/18 08:50 Comment 05/11/18 03:27 Intake & Output 05/10/18 05/11/18 05/11/18 23:59 11:59 23:59 Intake Total 2347.917 / 2347.917 1200 / 1200 Output Total 1250 / 1250 Balance 1097.917 / 7528.797 9898 / 1200 Weight 236 lb 8.896 oz Intake: IV 2347.917 / 2347.917 1200 / 1200 Output: Urine 1250 / 1250 Other: Urine Color Yellow Urine Appearance Clear Stool Size Large Stool Characteristics Brown Voiding Methods Toilet Laboratory Results WBC 4.89 k/cumm (4.4-10.8) 05/11/18 07:25 RBC 4.50 m/cumm (4.50-6.00) 05/11/18 07:25 Hgb 14.0 g/dL (13.5-17.5) 05/11/18 07:25 Hct 41.4 % (40.0-50.0) 05/11/18 07:25 MCV 92.0 fL (80-95) 05/11/18 07:25 MCH 31.1 pg (27.0-33.0) 05/11/18 07:25 MCHC 33.8 g/dL (32.0-36.0) 05/11/18 07:25 RDW 12.2 % (11.8-14.1) 05/11/18 07:25 Plt Count 157 x1000/uL (130-400) 05/11/18 07:25 MPV 8.3 fL (8.0-11.0) 05/11/18 07:25 Immature Gran % 0.2 05/11/18 07:25 Neutrophils % 65.7 05/11/18 07:25 Lymphocytes % 16.2 05/11/18 07:25 Monocytes % 15.1 05/11/18 07:25 Eosinophils % 1.8 05/11/18 07:25 Basophils % 1.0 05/11/18 07:25 Absolute Neutrophils 3.21 k/cumm (1.2-6.7) 05/11/18 07:25 Absolute Lymphocytes 0.79 k/cumm (1.2-3.4) L 05/11/18 07:25 Absolute Monocytes 0.74 k/cumm (0.11-0.7) H 05/11/18 07:25 Absolute Eosinophils 0.09 k/cumm (0.0-0.7) 05/11/18 07:25 Absolute Basophils 0.05 k/cumm (0.0-0.2) 05/11/18 07:25 ESR 35 MM/HR (1-20) H 05/11/18 07:25 Sodium 137 mmol/L (136-145) 05/11/18 07:25 Potassium 3.4 mmol/L (3.5-5.1) L 05/11/18 07:25 Chloride 100 mmol/L (98-107) 05/11/18 07:25 Carbon Dioxide 27.6 mmol/L (21.0-32.0) 05/11/18 07:25 Anion Gap 9.4 mmol/L (3-11) 05/11/18 07:25 BUN 9 mg/dL (7-18) 05/11/18 07:25 Creatinine 1.02 mg/dL (0.70-1.30) 05/11/18 07:25 Estimated GFR/1.73 m2 >= 60.00 (mL/min/1.73m2) 05/11/18 07:25 Glucose 110 mg/dL (70-100) H 05/11/18 07:25 Calcium 8.8 mg/dL (8.5-10.1) 05/11/18 07:25 Total Bilirubin 0.7 mg/dL (0.2-1.0) 05/10/18 09:50 AST 28 U/L (15-37) 05/10/18 09:50 ALT 31 U/L (12-78) 05/10/18 09:50 Alkaline Phosphatase 63 U/L (46-116) 05/10/18 09:50 C-Reactive Protein 13.95 mg/dL (0.0-0.3) H 05/11/18 07:25 Total Protein 7.4 g/dL (6.4-8.2) 05/10/18 09:50 Albumin 3.8 g/dL (3.4-5.0) 05/10/18 09:50 Lipase 135 U/L (73-393) 05/10/18 09:50 Patient ABO/Rh A Positive 05/10/18 09:50 Antibody Screen Negative 05/10/18 09:50
[2018-05-11 15:36] VITALS: BP 135/96; PULSE 74; RESP 20; TEMP 37.3; O2SAT 96
[2018-05-11 20:10] VITALS: BP 153/108; PULSE 77; RESP 20; TEMP 37.9; O2SAT 97
[2018-05-11] MEDS: Enoxaparin 40 MG/0.4 ML SYR SC (20:21)
[2018-05-11 23:31] VITALS: BP 155/98; PULSE 83; RESP 18; TEMP 38.2; O2SAT 96
[2018-05-12] MEDS: Normal Saline Flush 10 ML SYR IVP ×3 (02:30→19:51)
[2018-05-12] MEDS: ACETAMINOPHEN 1,000 MG/100 ML BTL 400 MG IVPB (02:35)
[2018-05-12] MEDS: PIPERACILLIN/TAZO 3.375 GM in Normal Saline 50 ML IVPB ×4 (02:59→19:47)
[2018-05-12 03:06] VITALS: BP 135/90; PULSE 70; RESP 18; TEMP 37.4; O2SAT 96
[2018-05-12 03:35] VITALS: BP 151/97; PULSE 83; RESP 18; TEMP 38; O2SAT 96
[2018-05-12] MEDS: Normal Saline 500 ML 100 ML IV (03:35)
[2018-05-12] MEDS: POTASSIUM CHLORIDE/D5-0.45NACL 1,000 ML 125 MEQ IV (03:50)
--- NOTE | 2018-05-12 07:11 | W.PM.PROGNOT ---
Assessment and Plan (1) Bowel perforation: Current visit: Yes Status: Acute A\\No pain overnight + BM, + Flatus, Hungry Did well with sips of clears Low grade fevers overnight. Nothing all day yesterday during day ? atelectasis P\\ 1. Diet: Will advance to clears 2. Activity: up ad marcia 3. Bowel perforation: Continuo with Abx 4. Pain medication: Make tylenol a prn med 6. Labs pending Subjective Interval history since last seen: Damon had a good night. No pain. Was given Tylenol for some low grade temps in the 100. BP better again this am. Pulse better this am. No issues drinking sips of fluids. Passing flatus. Minimal rumbling pain in the lower abdomen. Exam Resp Effort & Inspection: normal respiratory effort Auscultation: clear to auscultation bilaterally Cardio Rate: regular rate Rhythm: regular rhythm Heart Sounds: no click, no gallops, no murmurs and no rubs GI Inspection: normal to inspection and distended Palpation: soft and nontender Auscultation: normal bowel sounds Objective Objective Clinical Data: Abnormal lab results 05/11/18 05/11/18 Range/Units 07:25 07:25 Absolute Lymphocytes 0.79 L (1.2-3.4) k/cumm Absolute Monocytes 0.74 H (0.11-0.7) k/cumm ESR 35 H (1-20) MM/HR Potassium 3.4 L (3.5-5.1) mmol/L Glucose 110 H (70-100) mg/dL C-Reactive Protein 13.95 H (0.0-0.3) mg/dL Vital Signs Temperature 99.3 F 05/12/18 03:06 Temperature Source Tympanic 05/12/18 03:06 Pulse 70 05/12/18 03:06 Pulse Rhythm Regular 05/11/18 23:45 Respiratory Rate 18 05/12/18 03:06 Respiratory Effort 05/11/18 23:45 Respiratory Depth Normal 05/11/18 23:45 Respiratory Pattern Normal 05/11/18 23:45 Blood Pressure 135/90 05/12/18 03:06 Blood Pressure Position Sitting 05/10/18 09:25 Pulse Oximetry 96 05/12/18 03:06 Oxygen Delivery Method Room Air 05/12/18 03:06 Oxygen Flow Rate 0 05/12/18 03:06 Pain Level 0 05/11/18 08:50 Comment 05/11/18 20:10 Intake & Output 05/11/18 05/11/18 05/12/18 11:59 23:59 11:59 Intake Total 1200 / 1200 2475 / 2475 600 / 600 Balance 1200 / 1200 2475 / 2475 600 / 600 Intake: IV 1200 / 1200 1875 / 1875 600 / 600 Oral 600 / 600 Other: Comment VOIDED IN TOILET Voiding Methods Toilet Laboratory Results WBC 4.89 k/cumm (4.4-10.8) 05/11/18 07:25 RBC 4.50 m/cumm (4.50-6.00) 05/11/18 07:25 Hgb 14.0 g/dL (13.5-17.5) 05/11/18 07:25 Hct 41.4 % (40.0-50.0) 05/11/18 07:25 MCV 92.0 fL (80-95) 05/11/18 07:25 MCH 31.1 pg (27.0-33.0) 05/11/18 07:25 MCHC 33.8 g/dL (32.0-36.0) 05/11/18 07:25 RDW 12.2 % (11.8-14.1) 05/11/18 07:25 Plt Count 157 x1000/uL (130-400) 05/11/18 07:25 MPV 8.3 fL (8.0-11.0) 05/11/18 07:25 Immature Gran % 0.2 05/11/18 07:25 Neutrophils % 65.7 05/11/18 07:25 Lymphocytes % 16.2 05/11/18 07:25 Monocytes % 15.1 05/11/18 07:25 Eosinophils % 1.8 05/11/18 07:25 Basophils % 1.0 05/11/18 07:25 Absolute Neutrophils 3.21 k/cumm (1.2-6.7) 05/11/18 07:25 Absolute Lymphocytes 0.79 k/cumm (1.2-3.4) L 05/11/18 07:25 Absolute Monocytes 0.74 k/cumm (0.11-0.7) H 05/11/18 07:25 Absolute Eosinophils 0.09 k/cumm (0.0-0.7) 05/11/18 07:25 Absolute Basophils 0.05 k/cumm (0.0-0.2) 05/11/18 07:25 ESR 35 MM/HR (1-20) H 05/11/18 07:25 Sodium 137 mmol/L (136-145) 05/11/18 07:25 Potassium 3.4 mmol/L (3.5-5.1) L 05/11/18 07:25 Chloride 100 mmol/L (98-107) 05/11/18 07:25 Carbon Dioxide 27.6 mmol/L (21.0-32.0) 05/11/18 07:25 Anion Gap 9.4 mmol/L (3-11) 05/11/18 07:25 BUN 9 mg/dL (7-18) 05/11/18 07:25 Creatinine 1.02 mg/dL (0.70-1.30) 05/11/18 07:25 Estimated GFR/1.73 m2 >= 60.00 (mL/min/1.73m2) 05/11/18 07:25 Glucose 110 mg/dL (70-100) H 05/11/18 07:25 Calcium 8.8 mg/dL (8.5-10.1) 05/11/18 07:25 Total Bilirubin 0.7 mg/dL (0.2-1.0) 05/10/18 09:50 AST 28 U/L (15-37) 05/10/18 09:50 ALT 31 U/L (12-78) 05/10/18 09:50 Alkaline Phosphatase 63 U/L (46-116) 05/10/18 09:50 C-Reactive Protein 13.95 mg/dL (0.0-0.3) H 05/11/18 07:25 Total Protein 7.4 g/dL (6.4-8.2) 05/10/18 09:50 Albumin 3.8 g/dL (3.4-5.0) 05/10/18 09:50 Lipase 135 U/L (73-393) 05/10/18 09:50 Patient ABO/Rh A Positive 05/10/18 09:50 Antibody Screen Negative 05/10/18 09:50
[2018-05-12 07:45] VITALS: BP 146/104; PULSE 63; RESP 18; TEMP 37; O2SAT 97
[2018-05-12 08:43] LABS: Abs Immature Grans 0.01 k/cumm (0.0-0.09); Absolute Basophil Count 0.03 k/cumm (0.0-0.2); Absolute Eosinophil Count 0.19 k/cumm (0.0-0.7); Absolute Lymphocyte Count 0.65 k/cumm (1.2-3.4); Absolute Neutrophil Count 2.06 k/cumm (1.2-6.7); Basophils % 0.8; Eosinophils % 5.4; HCT 40.2 % (40.0-50.0); HGB 13.8 g/dL (13.5-17.5); Immature Grans % 0.3; Lymphocytes % 18.4; Mean Corp. HGB Concentration 34.3 g/dL (32.0-36.0); Mean Corpuscular Hemoglobin 31.3 pg (27.0-33.0); Mean Corpuscular Volume 91.2 fL (80-95); Mean Platelet Volume 8.3 fL (8.0-11.0); Monocytes % 16.9; Neutrophils % 58.2; Platelet Count 148 x1000/uL (130-400); RBC 4.41 m/cumm (4.50-6.00); White Blood Cell Count 3.54 k/cumm (4.4-10.8)
[2018-05-12 08:49] LABS: Magnesium 1.9 mg/dL (1.8-2.4)
[2018-05-12 08:54] VITALS: BP 158/97
--- NOTE | 2018-05-12 12:01 | PDOC.CMDIS ---
LACE Index Scoring Tool - Questions: Length of Stay (in days): 3 Acuity (Admit via E.D.?): Yes E.D. Visits: 1 - Answers: Total Score: 7 Risk of Readmission: Low Risk Care Management Discharge Reason for Hospitalization: Perforated Bowel Discharge Plan: Damon will return home when ready per MD. He will follow up with surgical services and his PCP. He will transport via private vehicle with a friend. Patient/Family Education Needs: Review discharge instructions, discuss Ask Me Three.
[2018-05-12] MEDS: Pantoprazole 40 MG VIAL IVP (14:30)
[2018-05-12] MEDS: POTASSIUM CHLORIDE/D5-0.45NACL 1,000 ML 80 MEQ IV (14:31)
[2018-05-12 14:37] VITALS: BP 176/106; PULSE 79; RESP 20; TEMP 37.8; O2SAT 98
--- NOTE | 2018-05-12 15:11 | PDOC.CMPRO ---
Care Management Progress Note S/O: CM met with Damon throughout the day; he reported feeling better and was pleasant in interaction. He was agreeable to MD plan of slow progression with diet due to perforated bowel. No change to overall plan. A: 53 year old male admitted to [facility] 05/10/18 P: Damon will return home when ready per MD. He will follow up with surgical services and his PCP. He will transport home via his own private vehicle which is parked in the ED parking lot.
--- NOTE | 2018-05-12 15:14 | CMPROGNOTE_ITS ---
Care Management Progress Note S/O: CM met with Damon throughout the day; he reported feeling better and was pleasant in interaction. He was agreeable to MD plan of slow progression with diet due to perforated bowel. No change to overall plan. A: 53 year old male admitted to [facility] 05/10/18 P: Damon will return home when ready per MD. He will follow up with surgical services and his PCP. He will transport home via his own private vehicle which is parked in the ED parking lot.
--- NOTE | 2018-05-12 16:01 | NUR.NOTE ---
Nursing Note:05/12/18 @ 1430-Patient quite anxious about getting car to garage and winter tires on. BP noted to be high. Sttaes he is anxious about appt tommorrow since he is here and worried about how it is going to work out. Care management in to see patient to work out appt info and to help relax patient. VS to be done in about 3/4 hr so hopefully will be lower then.
[2018-05-12 16:06] VITALS: TEMP 37.4
--- NOTE | 2018-05-12 16:14 | W.PM.PROGNOT ---
Assessment and Plan (1) Bowel perforation: Current visit: Yes Status: Acute A\\ Improvement in symptoms since this am + BM, + Flatus, Hungry P\\ 1. Diet: Will advance to full liquids 2. Activity: up ad marcia 3. Bowel perforation: Continuo with Abx 4. HTN: discussed with Hospitalist. May be due to fluids, or due to not having had any alcohol in 6 days. No tremors or other symptoms of withdrawel. Used to be on antihypertensives. Will start on Amlodipine 5 mg daily. Discharge on amlodipine daily and have patient follow up with PCP in 1 week Patient signed out to Dr. Zambrano Subjective Interval history since last seen: Feels well. States he is back to his normal self. No abdominal pain, no N/V Exam GI Inspection: normal to inspection Palpation: soft and nontender Auscultation: normal bowel sounds Objective Objective Clinical Data: Abnormal lab results 05/12/18 Range/Units 08:30 WBC 3.54 L (4.4-10.8) k/cumm RBC 4.41 L (4.50-6.00) m/cumm Absolute Lymphocytes 0.65 L (1.2-3.4) k/cumm Vital Signs Temperature 99.3 F 05/12/18 16:06 Temperature Source Tympanic 05/12/18 16:06 Pulse 79 05/12/18 14:37 Pulse Rhythm Regular 05/12/18 07:50 Respiratory Rate 20 05/12/18 14:37 Respiratory Effort 05/12/18 07:50 Respiratory Depth Normal 05/12/18 07:50 Respiratory Pattern Normal 05/12/18 07:50 Blood Pressure 176/106 H 05/12/18 14:37 Blood Pressure Position Sitting 05/10/18 09:25 Pulse Oximetry 98 05/12/18 14:37 Oxygen Delivery Method Room Air 05/12/18 14:37 Oxygen Flow Rate 0 05/12/18 14:37 Pain Level 0 05/11/18 08:50 Comment 05/12/18 14:37 Intake & Output 05/11/18 05/12/18 05/12/18 23:59 11:59 23:59 Intake Total 2475 / 2475 1818.333 / 5458.613 0259.334 / 1144.334 Output Total 1000 / 1000 Balance 2475 / 2475 818.333 / 787.051 9948.334 / 1144.334 Intake: IV 1875 / 1875 1358.333 / 1358.333 364.334 / 364.334 Oral 600 / 600 460 / 460 780 / 780 Output: Urine 1000 / 1000 Other: Urine Color Light Olga Urine Appearance Clear Urine Odor Normal Comment VOIDED IN TOILET Stool Size Moderate Stool Characteristics Liquid Brown Voiding Methods Urinal Laboratory Results WBC 3.54 k/cumm (4.4-10.8) L 05/12/18 08:30 RBC 4.41 m/cumm (4.50-6.00) L 05/12/18 08:30 Hgb 13.8 g/dL (13.5-17.5) 05/12/18 08:30 Hct 40.2 % (40.0-50.0) 05/12/18 08:30 MCV 91.2 fL (80-95) 05/12/18 08:30 MCH 31.3 pg (27.0-33.0) 05/12/18 08:30 MCHC 34.3 g/dL (32.0-36.0) 05/12/18 08:30 RDW 12.0 % (11.8-14.1) 05/12/18 08:30 Plt Count 148 x1000/uL (130-400) 05/12/18 08:30 MPV 8.3 fL (8.0-11.0) 05/12/18 08:30 Immature Gran % 0.3 05/12/18 08:30 Neutrophils % 58.2 05/12/18 08:30 Lymphocytes % 18.4 05/12/18 08:30 Monocytes % 16.9 05/12/18 08:30 Eosinophils % 5.4 05/12/18 08:30 Basophils % 0.8 05/12/18 08:30 Absolute Neutrophils 2.06 k/cumm (1.2-6.7) 05/12/18 08:30 Absolute Lymphocytes 0.65 k/cumm (1.2-3.4) L 05/12/18 08:30 Absolute Monocytes 0.60 k/cumm (0.11-0.7) 05/12/18 08:30 Absolute Eosinophils 0.19 k/cumm (0.0-0.7) 05/12/18 08:30 Absolute Basophils 0.03 k/cumm (0.0-0.2) 05/12/18 08:30 ESR 35 MM/HR (1-20) H 05/11/18 07:25 Sodium 137 mmol/L (136-145) 05/11/18 07:25 Potassium 3.4 mmol/L (3.5-5.1) L 05/11/18 07:25 Chloride 100 mmol/L (98-107) 05/11/18 07:25 Carbon Dioxide 27.6 mmol/L (21.0-32.0) 05/11/18 07:25 Anion Gap 9.4 mmol/L (3-11) 05/11/18 07:25 BUN 9 mg/dL (7-18) 05/11/18 07:25 Creatinine 1.02 mg/dL (0.70-1.30) 05/11/18 07:25 Estimated GFR/1.73 m2 >= 60.00 (mL/min/1.73m2) 05/11/18 07:25 Glucose 110 mg/dL (70-100) H 05/11/18 07:25 Calcium 8.8 mg/dL (8.5-10.1) 05/11/18 07:25 Magnesium 1.9 mg/dL (1.8-2.4) 05/12/18 08:30 Total Bilirubin 0.7 mg/dL (0.2-1.0) 05/10/18 09:50 AST 28 U/L (15-37) 05/10/18 09:50 ALT 31 U/L (12-78) 05/10/18 09:50 Alkaline Phosphatase 63 U/L (46-116) 05/10/18 09:50 C-Reactive Protein 13.95 mg/dL (0.0-0.3) H 05/11/18 07:25 Total Protein 7.4 g/dL (6.4-8.2) 05/10/18 09:50 Albumin 3.8 g/dL (3.4-5.0) 05/10/18 09:50 Lipase 135 U/L (73-393) 05/10/18 09:50 Patient ABO/Rh A Positive 05/10/18 09:50 Antibody Screen Negative 05/10/18 09:50
[2018-05-12] MEDS: amLODIPine 5 MG TAB PO (17:41)
[2018-05-13 00:25] VITALS: BP 157/99; PULSE 87; RESP 18; TEMP 37.8; O2SAT 96
[2018-05-13] MEDS: Ketorolac 30 MG/ML VIAL IVP (02:26)
[2018-05-13] MEDS: Normal Saline 500 ML 100 ML IV (02:27)
[2018-05-13] MEDS: PIPERACILLIN/TAZO 3.375 GM in Normal Saline 50 ML IVPB ×2 (02:27→09:13)
[2018-05-13] MEDS: Normal Saline Flush 10 ML SYR IVP (02:27)
[2018-05-13 07:18] LABS: Anion Gap 10.5 mmol/L (3-11); BUN 5 mg/dL (7-18); CO2 26.5 mmol/L (21.0-32.0); CREATININE 1.04 mg/dL (0.70-1.30); Calcium 8.9 mg/dL (8.5-10.1); Chloride 100 mmol/L (98-107); Glucose 89 mg/dL (70-100); Potassium 3.5 mmol/L (3.5-5.1); Sodium 137 mmol/L (136-145)
[2018-05-13 07:20] VITALS: BP 153/110; PULSE 78; RESP 20; TEMP 36.6; O2SAT 98
[2018-05-13] MEDS: amLODIPine 5 MG TAB PO (09:11)
--- NOTE | 2018-05-13 09:51 | W.PM.DS.N ---
Date of service: 05/13/18 Time of Service: 09:51 DS: Diagnosis Discharge Diagnosis (1) Bowel perforation: Status: Acute Discharge Plan Disposition Patient Disposition: HOME Condition: Good Discharge Details Chief Complaint: Abd Prob Reason For Visit: PERFORATED BOWEL Admit Date/Time: 05/10/18 12:07 Admit Provider: Loc Rhoades Attending Provider: Loc Rhoades Primary Care Provider: Pricilla Sevilla ED Provider: Jesus Enriquez Hospital Course Hospital Course: 53 y/o male who underwent a colonoscopy with multiple polypectomies on 05/08/18. Patient admitted to the hospital on 05/10/18 for abdominal pain with free air seen on imaging. Low grade fever on this admission. No leukocytosis noted. Patient managed conservatively with bowel rest on IV antibiotics with Zosyn. Abdominal pain resolved. Diet gradually resumed and advanced. Patient tolerating diet without nausea or vomiting or abdominal pain. Elevated BP noted on this admission. Patient has a h/o HTN but is not currently on home meds for it. Amlodipine 5 mg po daily started on this admission. Patient to follow-up with his PCP in 1 week after discharge to address his BP. Follow-up with Dr. Palomo in the office in 1 week re: colonoscopy. Home Meds and New Rx's Prescriptions: New amlodipine 5 mg Tablet 5 mg PO DAILY Qty: 30 RF: 0 Discharge Instructions Referrals: Pricilla Sevilla [Primary Care Provider] - (Follow-up in 1 week re: HTN.) Tona Palomo MD [ [facility] STAFF PHYSICIAN] - (Follow-up in 1 week re: colonoscopy.) Activity:: Activity as Tolerated Equipment/Supplies:: No Equipment Needed Diet:: Normal Diet Discharge Orders Discharge Orders: Discharge Order (Routine); Ordered 05/13/18 Ordered By: Linwood Zambrano DS: Summary Status at Discharge Overall status at discharge: patient is back to baseline Time Spent with Patient Less than 30 minutes Exam Const General: cooperative, healthy appearing, comfortable and no acute distress Nutritional Appearance: average body habitus Orientation: alert and oriented x3 Resp Effort & Inspection: normal respiratory effort and able to speak in complete sentences Cardio Jugular venous pressure: no JVD GI Inspection: non-distended Palpation: soft, not firm, no guarding, not rigid and nontender Skin General skin exam: no rashes or lesions noted and jaundice DS: Data Vitals/I&O Vitals and I&O: Vital Signs Temperature 36.6 C 05/13/18 07:20 Temperature Source Tympanic 05/13/18 07:20 Pulse 78 05/13/18 07:20 Pulse Rhythm Regular 05/13/18 00:25 Respiratory Rate 20 05/13/18 07:20 Respiratory Effort Non-Labored 05/13/18 00:25 Respiratory Depth Normal 05/13/18 00:25 Respiratory Pattern Normal 05/13/18 00:25 Blood Pressure 153/110 H 05/13/18 07:20 Blood Pressure Position Sitting 05/10/18 09:25 Pulse Oximetry 98 05/13/18 07:20 Oxygen Delivery Method Room Air 05/13/18 07:20 Oxygen Flow Rate 0 05/13/18 07:20 Pain Level 0 05/13/18 00:25 Comment 05/12/18 14:37 Intake & Output 05/12/18 05/12/18 05/13/18 11:59 23:59 11:59 Intake Total 1818.333 / 2111.513 8161.334 / 1261.334 920 / 920 Output Total 1000 / 1000 Balance 818.333 / 163.471 7141.334 / 1261.334 920 / 920 Intake: IV 1358.333 / 1358.333 481.334 / 481.334 80 / 80 Oral 460 / 460 780 / 780 840 / 840 Output: Urine 1000 / 1000 Other: Urine Color Light Olga Urine Appearance Clear Urine Odor Normal Comment VOIDED IN TOILET Stool Size Moderate Moderate Stool Characteristics Liquid Soft Brown Brown Voiding Methods Urinal Toilet Labs on day of discharge: Labs from last 24 hours 05/13/18 05:24 Sodium 137 Potassium 3.5 Chloride 100 Carbon Dioxide 26.5 Anion Gap 10.5 BUN 5 L Creatinine 1.04 Estimated GFR/1.73 m2 >= 60.00 Glucose 89 Calcium 8.9
--- NOTE | 2018-05-13 09:56 | DSE_ITS ---
Date of service: 05/13/18 Time of Service: 09:51 DS: Diagnosis Discharge Diagnosis (1) Bowel perforation: Status: Acute Discharge Plan Disposition Patient Disposition: HOME Condition: Good Discharge Details Chief Complaint: Abd Prob Reason For Visit: PERFORATED BOWEL Admit Date/Time: 05/10/18 12:07 Admit Provider: Loc Rhoades Attending Provider: Loc Rhoades Primary Care Provider: Pricilla Sevilla ED Provider: Jesus Enriquez Hospital Course Hospital Course: 53 y/o male who underwent a colonoscopy with multiple polypectomies on . Patient admitted to the hospital on 05/10/18 for abdominal pain with free air seen on imaging. Low grade fever on this admission. No leukocytosis noted. Patient managed conservatively with bowel rest on IV antibiotics with Zosyn. Abdominal pain resolved. Diet gradually resumed and advanced. Patient tolerating diet without nausea or vomiting or abdominal pain. Elevated BP noted on this admission. Patient has a h/o HTN but is not currently on home meds for it. Amlodipine 5 mg po daily started on this admission. Patient to follow-up with his PCP in 1 week after discharge to address his BP. Follow-up with Dr. Palomo in the office in 1 week re: colonoscopy. Home Meds and New Rx's Prescriptions: New amlodipine 5 mg Tablet 5 mg PO DAILY Qty: 30 RF: 0 Discharge Instructions Referrals: Pricilla Sevilla [Primary Care Provider] - (Follow-up in 1 week re: HTN.) Tona Palomo MD [ [facility] STAFF PHYSICIAN] - (Follow-up in 1 week re: colonoscopy.) Activity:: Activity as Tolerated Equipment/Supplies:: No Equipment Needed Diet:: Normal Diet Discharge Orders Discharge Orders: Discharge Order (Routine); Ordered 05/13/18 Ordered By: Linwood Zambrano DS: Summary Status at Discharge Overall status at discharge: patient is back to baseline Time Spent with Patient Less than 30 minutes Exam Const General: cooperative, healthy appearing, comfortable and no acute distress Nutritional Appearance: average body habitus Orientation: alert and oriented x3 Resp Effort & Inspection: normal respiratory effort and able to speak in complete sentences Cardio Jugular venous pressure: no JVD GI Inspection: non-distended Palpation: soft, not firm, no guarding, not rigid and nontender Skin General skin exam: no rashes or lesions noted and jaundice DS: Data Vitals/I&O Vitals and I&O: Vital Signs Temperature 36.6 C 05/13/18 07:20 Temperature Source Tympanic 05/13/18 07:20 Pulse 78 05/13/18 07:20 Pulse Rhythm Regular 05/13/18 00:25 Respiratory Rate 20 05/13/18 07:20 Respiratory Effort Non-Labored 05/13/18 00:25 Respiratory Depth Normal 05/13/18 00:25 Respiratory Pattern Normal 05/13/18 00:25 Blood Pressure 153/110 H 05/13/18 07:20 Blood Pressure Position Sitting 05/10/18 09:25 Pulse Oximetry 98 05/13/18 07:20 Oxygen Delivery Method Room Air 05/13/18 07:20 Oxygen Flow Rate 0 05/13/18 07:20 Pain Level 0 05/13/18 00:25 Comment 05/12/18 14:37 Intake & Output 05/12/18 05/12/18 05/13/18 11:59 23:59 11:59 Intake Total 1818.333 / 9428.611 9263.334 / 1261.334 920 / 920 Output Total 1000 / 1000 Balance 818.333 / 429.666 3997.334 / 1261.334 920 / 920 Intake: IV 1358.333 / 1358.333 481.334 / 481.334 80 / 80 Oral 460 / 460 780 / 780 840 / 840 Output: Urine 1000 / 1000 Other: Urine Color Light Olga Urine Appearance Clear Urine Odor Normal Comment VOIDED IN TOILET Stool Size Moderate Moderate Stool Characteristics Liquid Soft Brown Brown Voiding Methods Urinal Toilet Labs on day of discharge: Labs from last 24 hours 05/13/18 05:24 Sodium 137 Potassium 3.5 Chloride 100 Carbon Dioxide 26.5 Anion Gap 10.5 BUN 5 L Creatinine 1.04 Estimated GFR/1.73 m2 >= 60.00 Glucose 89 Calcium 8.9
[2018-05-13 11:25] VITALS: BP 136/85; PULSE 78; RESP 22; TEMP 36.6; O2SAT 97
--- NOTE | 2018-05-13 12:45 | PDOC.CMDIS ---
- If Service Date Differs Date of service: 05/13/18 Time of Service: 12:45 LACE Index Scoring Tool - Questions: Length of Stay (in days): 4 - 6 Acuity (Admit via E.D.?): Yes E.D. Visits: 1 - Answers: Total Score: 8 Risk of Readmission: Low Risk Care Management Discharge Reason for Hospitalization: Perforated Bowel Discharge Plan: Damon will return home today with no services. He will F/U with Dr. Palomo and plan of care as prescribed. Damon will drive himself home today. Patient/Family Education Needs: Review DC instructions, any limitations, and discuss 'Ask Me Three'
== END 2018-05-13 12:56 | disposition home or self-care (01) | DRG 395 ==
LOC: ER 11:15 → MS 12:35
PROVIDERS: Physical Therapy Assistant; Surgery; Admitting Provider Surgery; Emergency Provider Student in an Organized Health Care Education/Training Program; PCP Nurse Practitioner Family; Visit Provider Surgery
DX: K63.1 Perforation of intestine (nontraumatic) (principal); I10 Essential (primary) hypertension; Z98.890 Other specified postprocedural states
CPT/HCPCS: 36415; 80048; 80053; 83690; 85652; 86850; 86900; 86901; 96361; 96365; 96375; 96376; 99223; 99231; 99238; 99285; J1650; NC; 74022; 74177; 83735; 85025; 86140; J0131; J1885; J2543; J3490

== ENCOUNTER 2018-09-14 17:07 | Outpatient (REF) | payer BC, SELFPAY ==
[2018-09-14 21:26] LABS: Abs Immature Grans 0.05 k/cumm (0.0-0.09); Absolute Basophil Count 0.05 k/cumm (0.0-0.2); Absolute Eosinophil Count 0.11 k/cumm (0.0-0.7); Absolute Lymphocyte Count 1.43 k/cumm (1.2-3.4); Absolute Monocyte Count 0.65 k/cumm (0.11-0.7); Basophils % 0.5; HCT 48.1 % (40.0-50.0); HGB 16.3 g/dL (13.5-17.5); Immature Grans % 0.5; Lymphocytes % 13.1; Mean Corp. HGB Concentration 33.9 g/dL (32.0-36.0); Mean Corpuscular Hemoglobin 30.9 pg (27.0-33.0); Mean Corpuscular Volume 91.3 fL (80-95); Mean Platelet Volume 8.9 fL (8.0-11.0); Neutrophils % 78.9; Platelet Count 270 x1000/uL (130-400); RBC 5.27 m/cumm (4.50-6.00); RBC Distribution Width 12.9 % (11.8-14.1)
[2018-09-14 21:37] LABS: ALT 27 U/L (12-78); AST 23 U/L (15-37); Albumin 4.1 g/dL (3.4-5.0); Alkaline Phosphatase 74 U/L (46-116); Anion Gap 10.8 mmol/L (3-11); BUN 12 mg/dL (7-18); Bilirubin, Total 0.4 mg/dL (0.2-1.0); CO2 26.2 mmol/L (21.0-32.0); CREATININE 0.87 mg/dL (0.70-1.30); Calcium 9.6 mg/dL (8.5-10.1); Chloride 102 mmol/L (98-107); Glucose 110 mg/dL (70-100); Potassium 4.1 mmol/L (3.5-5.1); Sodium 139 mmol/L (136-145); Total Protein 7.4 g/dL (6.4-8.2)
== END 2018-09-14 17:27 ==
LOC: NCHCN 17:07
PROVIDERS: PCP Nurse Practitioner Family; Visit Provider Nurse Practitioner Family
DX: R19.8 Other specified symptoms and signs involving the digestive system and abdomen (principal); R19.7 Diarrhea, unspecified; R10.32 Left lower quadrant pain
CPT/HCPCS: 80053; 85025

== ENCOUNTER 2018-09-15 11:02 | Outpatient (REF) | payer BC, SELFPAY ==
[2018-09-16 11:25] LABS: Campylobacter PCR SEE COMMENTS; Salmonella PCR SEE COMMENTS; Shiga Toxin PCR SEE COMMENTS; Shigella/Enteroinvasive Ecoli SEE COMMENTS
== END 2018-09-15 11:22 ==
LOC: NCHCN 11:02
PROVIDERS: PCP Nurse Practitioner Family; Visit Provider Nurse Practitioner Family
DX: R19.8 Other specified symptoms and signs involving the digestive system and abdomen (principal); R10.32 Left lower quadrant pain; R19.7 Diarrhea, unspecified
CPT/HCPCS: 87329; 87505

== ENCOUNTER 2018-09-19 00:45 | Outpatient (CLI) | payer BC, SELFPAY ==
[2018-09-19] MEDS: Breeza Beverage 473 ML BTL PO (07:12)
[2018-09-19] MEDS: Omnipaque 350 MG/ML 50 ML BTL PO (07:12)
[2018-09-19] MEDS: Omnipaque 350 MG/ML 100 ML BTL IJ (08:36)
[2018-09-19] MEDS: Normal Saline Flush 10 ML SYR IVP (08:37)
--- NOTE | 2018-09-19 08:37 | DI.CT_ITS ---
SYMPTOMS/DIAGNOSIS: IRREGULAR BOWEL HABITS, R19.8 LLQ ABD PAIN, R10.32, DIARRHEA, R19.7 CT OF THE ABDOMEN AND PELVIS: Comparison is made with [id number]. Images were performed from the lung bases through the ischial tuberosities after IV and oral contrast. The oral contrast extends to the distal small bowel. There is suboptimal evaluation of the colon without oral contrast. There are diverticula in the junction of the descending and sigmoid colon and area of surrounding stranding in the fat, consistent with diverticulitis. No abscess, free air or free fluid is seen. There is mild diffuse wall thickening of the remainder of the colon. The appendix appears dilated when compared with the previous exam but there are no surrounding inflammatory changes. There is no small bowel dilatation. No focal mass is visible. There is tortuosity and dilatation of the distal thoracic aorta to 4 cm. The abdominal aorta is normal in diameter and shows mild calcification. The prostate appears normal in size. There is mild bladder wall thickening. Parapelvic cysts are seen in the left kidney. There are no urinary tract calculi or hydronephrosis. Tiny cysts are seen in the liver. The gallbladder, spleen, adrenals and pancreas are unremarkable. There are bilateral fatty containing inguinal hernias. There are mild degenerative changes in the spine, greater in the lower thoracic region. IMPRESSION: 1. Diverticulitis at the junction of the descending and sigmoid colon. 2. Mild diffuse colonic wall thickening. Dilatation of the thoracic aorta.
== END 2018-09-19 01:05 ==
PROVIDERS: PCP Nurse Practitioner Family; Visit Provider Nurse Practitioner Family
DX: R19.8 Other specified symptoms and signs involving the digestive system and abdomen (principal); R10.32 Left lower quadrant pain; K57.32 Diverticulitis of large intestine without perforation or abscess without bleeding; K63.89 Other specified diseases of intestine
CPT/HCPCS: 74177; J3490; Q9967

== ENCOUNTER 2018-10-13 00:56 | Outpatient (CLI) | payer BC, SELFPAY ==
--- NOTE | 2018-10-13 10:34 | MERGE_ITS ---
*[facility]* *[facility]* [address] [place] [address] Date of study: 10/13/2018 Transthoracic Echocardiography M-mode, complete 2D, complete spectral Doppler, and color Doppler *STUDY CONCLUSIONS* Summary: 1. Left ventricle: The cavity size was normal. Wall thickness was normal. Systolic function was normal. The estimated ejection fraction was 55-60%. Wall motion was normal; there were no regional wall motion abnormalities. 2. Right ventricle: The cavity size was normal. Systolic function was normal. 3. Left atrium: The atrium was mildly dilated. 4. Aortic valve: Trileaflet; mildly thickened, mildly calcified leaflets. There was trivial regurgitation. 5. Aortic root: The aortic root was mildly dilated (41 mm). 6. Ascending aorta: The ascending aorta was at upper normal limits (38 mm). 7. Inferior vena cava: The vessel was normal in size. The respirophasic diameter changes were in the normal range (greater than or equal to 50%), consistent with normal central venous pressure. *PATIENT PRESENTATION* Height: 180.3cm ((71in) ) S/D Pressure: 117 / 80 Weight: 108.9kg ((239.5lb) ) BSA: 2.37m^2 Test start time: 10:30 AM. Test stop time: 11:20 AM. PERFORMING Unknown ORDERING Pricilla Sevilla Aprn REFERRING Pricilla Sevilla Aprn PERFORMING [facility] Alexandrea Thornton *PROCEDURE DATA* Procedure information: This study was interpreted by [facility]. Pertinent images and digital data are archived for permanent storage and are available for subsequent review. No prior study was available for comparison. Study status: Routine. Transthoracic echocardiography. M-mode, complete 2D, complete spectral Doppler, and color Doppler. A Transthoracic Echocardiogram was performed. Scanning was performed from the parasternal, apical, subcostal, and suprasternal notch acoustic windows. Images were obtained using an [employer] 2000 cardiac ultrasound machine. Image quality was adequate. Study completion: The patient tolerated the procedure well. There were no complications. History: PMH: Aortic Dilation. *CARDIAC ANATOMY* Left ventricle: The cavity size was normal. Wall thickness was normal. Systolic function was normal. The estimated ejection fraction was 55-60%. Wall motion was normal; there were no regional wall motion abnormalities. Aortic valve: Trileaflet; mildly thickened, mildly calcified leaflets. Mobility was not restricted. Doppler: Transvalvular velocity was within the normal range. There was no stenosis. There was trivial regurgitation. VTI ratio of LVOT to aortic valve: 0.91. Valve area (VTI): 3.1cm^2. Indexed valve area (VTI): 1.3cm^2/m^2. Peak velocity ratio of LVOT to aortic valve: 0.87. Valve area (Vmax): 3cm^2. Indexed valve area (Vmax): 1.3cm^2/m^2. Mean velocity ratio of LVOT to aortic valve: 0.82. Valve area (Vmean): 2.8cm^2. Indexed valve area (Vmean): 1.2cm^2/m^2. Mean gradient (S): 3mm Hg. Peak gradient (S): 6.4mm Hg. Aorta: Aortic root: The aortic root was mildly dilated (41 mm). Ascending aorta: The ascending aorta was at upper normal limits (38 mm). Mitral valve: Structurally normal valve. Mobility was not restricted. Doppler: Transvalvular velocity was within the normal range. There was no evidence for stenosis. There was trivial regurgitation. Valve area by pressure half-time: 3.6cm^2. Indexed valve area by pressure half-time: 1.5cm^2/m^2. Left atrium: The atrium was mildly dilated. Right ventricle: The cavity size was normal. Systolic function was normal. Pulmonic valve: Poorly visualized. Doppler: Transvalvular velocity was within the normal range. There was no evidence for stenosis. There was no significant regurgitation. Tricuspid valve: Structurally normal valve. Doppler: Transvalvular velocity was within the normal range. There was no evidence for stenosis. There was trivial regurgitation. Pulmonary artery: Poorly visualized. Systolic pressure could not be accurately estimated. Right atrium: The atrium was normal in size. Pericardium: There was no pericardial effusion. Systemic veins: Inferior vena cava: The vessel was normal in size. The respirophasic diameter changes were in the normal range (greater than or equal to 50%), consistent with normal central venous pressure. Measurements Left ventricle Value Reference LV ID, ED, PLAX 5.3 cm 3.5 - 6.0 LV ID, ES, PLAX 3.6 cm 2.1 - 4.0 LV PW thickness, ED, PLAX 1.0 cm LV end-diastolic volume, 1-p A2C 107 ml LV ejection fraction, 1-p A2C 51 % LV end-diastolic volume, 1-p A4C 120 ml LV ejection fraction, 1-p A4C 59 % LV e', lateral 0.113 m/sec LV E/e', lateral 5 LV e', medial 0.115 m/sec LV E/e', medial 5 LV e', average 0.114 m/sec LV E/e', average 5 Ventricular septum Value Reference IVS thickness, ED, PLAX 1.0 cm LVOT Value Reference LVOT ID, A-P 2.1 cm LVOT area 3.5 cm^2 LVOT peak velocity, S 1.1 m/sec LVOT mean velocity, S 0.66 m/sec LVOT VTI, S 22.8 cm LVOT peak gradient, S 4.9 mm Hg LVOT mean gradient, S 2.2 mm Hg Stroke volume (SV), LVOT DP 79 ml Stroke index (SV/bsa), LVOT DP 33 ml/m^2 Aortic valve Value Reference Aortic valve peak velocity, S 1.3 m/sec Aortic valve mean velocity, S 0.8 m/sec Aortic valve VTI, S 25.0 cm Aortic mean gradient, S 3 mm Hg Aortic peak gradient, S 6.4 mm Hg VTI ratio, LVOT/AV 0.91 Aortic valve area, VTI 3.1 cm^2 Velocity ratio, peak, LVOT/AV 0.87 Aortic valve area, peak velocity 3 cm^2 Velocity ratio, mean, LVOT/AV 0.82 Aortic valve area, mean velocity 2.8 cm^2 Aortic valve area/bsa, mean velocity 1.2 cm^2/m^2 Aorta Value Reference Aortic root ID, ED 4.1 cm Ascending aorta ID, A-P, S 3.7 cm Left atrium Value Reference LA ID, A-P, ES 3.7 cm LA ID/bsa, A-P 1.6 cm/m^2 <=2.2 LA area, ES, A4C (H) 27.8 cm^2 8.8 - 23.4 LA area, ES, A2C 21 cm^2 LA volume/bsa, S 35 ml/m^2 LA volume, ES, 2-p 77 ml LA volume/bsa, ES, 2-p 32 ml/m^2 LA/aortic root ratio 0.9 Mitral valve Value Reference Mitral E-wave peak velocity 0.59 m/sec Mitral A-wave peak velocity 0.63 m/sec Mitral deceleration time 213 ms 150 - 230 Mitral pressure half-time 62 ms Mitral E/A ratio, peak 0.94 Mitral valve area, PHT, DP 3.6 cm^2 Tricuspid valve Value Reference Tricuspid regurg peak velocity 2.2 m/sec Tricuspid peak RV-RA gradient 18.5 mm Hg Legend: (L) and (H) kade values outside specified reference range. I have personally reviewed the images and have reviewed and edited the reported findings. Electronically signed by Barrera Rizo 10/13/2018 11:56
== END 2018-10-13 01:16 ==
PROVIDERS: PCP Nurse Practitioner Family; Visit Provider Nurse Practitioner Family
DX: I77.819 Aortic ectasia, unspecified site (principal); I51.7 Cardiomegaly; I35.1 Nonrheumatic aortic (valve) insufficiency
CPT/HCPCS: 93306

== ENCOUNTER 2018-10-30 15:36 | Emergency (ER) | payer BC, SELFPAY ==
[2018-10-30 16:37] VITALS: BP 126/86; PULSE 69; RESP 16; TEMP 36.6; O2SAT 97
--- NOTE | 2018-10-30 17:07 | ED.GENADUL_ITS ---
Discharge Plan Disposition Patient Disposition: HOME Condition: Stable Discharge Details Chief Complaint: Abd Prob Clinical Impression: C. difficile colitis Primary Care Provider: Pricilla Sevilla ED Provider: Sreekanth Gage Home Meds and New Rx's Prescriptions: New vancomycin 250 mg capsule 500 mg PO QID 10 Days Qty: 80 RF: 0 Discharge Instructions Instructions: Clostridium Difficile Infection (ED), Colitis (ED) Additional Instructions: Please take antibiotic as prescribed and return to emergency department for any new or significant worsening of symptoms. Please call the general surgery office tomorrow morning for arrangement of follow-up appointment. Referrals: Tona Palomo MD [ [facility] STAFF PHYSICIAN] - (Call the office for arrangement of appointment later this week) Discharge Data Discharge Date/Time-TO BE ENTERED AT DEPARTURE: 10/30/18 21:20 Medical Decision Making Patient presenting the emergency department for chief complaint of abdominal pain. Patient states approximately 1 month ago he had diverticulitis and was seen by general surgery. Patient states over the past week he has had slight increase of discomfort specifically in the left lower quadrant and mostly when he has bowel movement. Patient denies any rectal pain or discomfort. Patient was seen by general surgery on Tuesday and decision was made to watch symptoms over the weekend and reassess as needed. Patient contacted them today due to slight increase of discomfort over the past 48 hours. They recommended patient come to the emergency department for evaluation and CT imaging. Patient reports mild left lower quadrant tenderness but nonsurgical abdomen is appreciated on exam. Otherwise patient is well in appearance with stable vital signs. Labs were also ordered for concern of worsening diverticulitis or formation of abscess. Patient denies any need for pain medication at this time Labs were drawn and show no leukocytosis. Labs are otherwise nondiagnostic. CT shows rueda colitis. I did call and speak with general surgery general surgeon requested stool specimen for concern of C. difficile. Patient was able to produce a bowel movement and sample did show positive C. difficile. Patient placed up on vancomycin and informed to call general surgery office for follow- up appointment. Patient remained stable, afebrile, unremarkable vital signs I feel that he is appropriate for outpatient therapy. Return precautions were discussed. After discussion of diagnosis and plan of care patient has no further needs, questions, or concerns and states clear understanding to return to the emergency department for any worsening symptoms. HPI General Mode of arrival: ambulatory . Date/Time Provider Initiated Documentation: 10/30/18 15:42 . Limitations to Documentation: no limitations . Information obtained by: patient . History of Present Illness 53 year old M presents to the emergency department with the chief complaint of ABD pain, described as mild, with intensity rated at 2. Quality is described as aching, and is localized to the abdomen and left. Patient started experiencing this week(s) (1) and it has been constant. Patient did receive the following treatments prior to arrival, none Related Data Home Medications Medication Instructions Recorded Confirmed vancomycin 500 mg PO QID 10 Days #80 cap 10/30/18 Previous Rx's Medication Instructions Recorded vancomycin 500 mg PO QID 10 Days #80 cap 10/30/18 Allergies Allergy/AdvReac Type Severity Reaction Status Date / Time shrimp Allergy Severe Anaphylaxsi Uncoded 10/30/18 16:40 s General Stated Complaint: Abd Prob KANG: 3 Review of Systems Constitutional Denies chills, Denies fever(s) and Reports poor appetite Cardiovascular Denies chest pain and Denies dyspnea Respiratory Denies cough and Denies dyspnea Gastrointestinal Reports as per HPI, Reports abdominal pain, Denies melena, Denies change in bowel habits, Denies constipation, Denies diarrhea, Reports nausea and Reports vomiting Genitourinary Denies hematuria, Denies difficulty urinating, Denies urinary hesitancy, Denies urinary incontinence and Denies urinary urgency Integumentary/Breasts Denies rash [facility] Medical History Diverticulitis large intestine (Acute) Bowel perforation (Resolved ~05/10/18) Abdominal pain (Acute) Diverticulosis (Chronic) Colorectal polyps (Resolved) Foreign body in esophagus (Acute) Diarrhea (Acute) HTN (hypertension) (Chronic) Hyperlipidemia (Chronic) Over weight (Chronic) Tobacco abuse (Chronic) Alcohol abuse Anxiety Plantar fasciitis Surgical History S/P colonoscopy (Acute ~04/2018) History of Surgical Procedure (Resolved) H/O esophagogastroduodenoscopy (Resolved) Social History Smoking/Tobacco Use Status: Current every day Alcohol Intake: current Alcohol Intake frequency: 3 or more drinks per day Alcohol type: beer Drug use: Occasionally Substance use type: does not use Adopted: Yes Housing: house Do you feel safe in your relationship?: Yes Exam Const General: cooperative Orientation: alert, awake and oriented x3 Resp Effort & Inspection: normal respiratory effort and able to speak in complete sentences Auscultation: clear to auscultation bilaterally Cardio Rate: regular rate Rhythm: regular rhythm Heart Sounds: S1 normal and S2 normal GI Palpation: soft, no hepatosplenomegaly, not firm, no guarding, no masses, no pulsatile masses, not rigid, no splenomegaly and tender in the LLQ Auscultation: normal bowel sounds Back/Spine/Pelvis Back: no CVA tenderness Neuro General: alert, awake, oriented x3, gait normal and moves all extremities Course Vital Signs Temperature 36.6 C 10/30/18 16:37 Pulse 69 10/30/18 16:37 Respiratory Rate 16 10/30/18 16:37 Blood Pressure 126/86 10/30/18 16:37 Pulse Oximetry 97 10/30/18 16:37 Temperature 36.6 C 10/30/18 16:37 Temperature Source Temporal Artery Scan 10/30/18 16:37 Pulse 69 10/30/18 16:37 Respiratory Rate 16 10/30/18 16:37 Blood Pressure 126/86 10/30/18 16:37 Blood Pressure Position Sitting 10/30/18 16:37 Pulse Oximetry 97 10/30/18 16:37 Oxygen Delivery Method Room Air 10/30/18 16:37 Oxygen Flow Rate 0 10/30/18 16:37 Pain Level 4 10/30/18 16:37
[2018-10-30 17:26] LABS: Abs Immature Grans 0.01 k/cumm (0.0-0.09); Absolute Basophil Count 0.06 k/cumm (0.0-0.2); Absolute Eosinophil Count 0.13 k/cumm (0.0-0.7); Absolute Monocyte Count 0.66 k/cumm (0.11-0.7); Absolute Neutrophil Count 5.18 k/cumm (1.2-6.7); Basophils % 0.7; Eosinophils % 1.6; HCT 43.7 % (40.0-50.0); HGB 14.9 g/dL (13.5-17.5); Immature Grans % 0.1; Lymphocytes % 24.9; Mean Corp. HGB Concentration 34.1 g/dL (32.0-36.0); Mean Platelet Volume 8.2 fL (8.0-11.0); Monocytes % 8.2; Neutrophils % 64.5; Platelet Count 199 x1000/uL (130-400); RBC Distribution Width 12.2 % (11.8-14.1); White Blood Cell Count 8.04 k/cumm (4.4-10.8)
[2018-10-30 17:32] LABS: Lactate 0.8 mmol/L (0.6-1.4)
[2018-10-30 17:56] LABS: ALT 28 U/L (12-78); AST 18 U/L (15-37); Albumin 3.8 g/dL (3.4-5.0); Alkaline Phosphatase 63 U/L (46-116); Anion Gap 7.2 mmol/L (3-11); BUN 8 mg/dL (7-18); Bilirubin, Total 0.6 mg/dL (0.2-1.0); CO2 28.8 mmol/L (21.0-32.0); CREATININE 0.81 mg/dL (0.70-1.30); Calcium 8.9 mg/dL (8.5-10.1); Chloride 102 mmol/L (98-107); Glucose 88 mg/dL (70-100); Lipase 186 U/L (73-393); Potassium 3.5 mmol/L (3.5-5.1); Sodium 138 mmol/L (136-145); Total Protein 6.9 g/dL (6.4-8.2)
[2018-10-30 18:01] LABS: Bilirubin Negative (Negative); Blood Negative (Negative); Clarity Clear; Glucose Negative (Negative); Ketones Negative (Negative); Leukocyte Esterase Negative (Negative); Nitrite Negative (Negative); Urobilinogen 0.2 EU/dL (Up TO 0.2)
--- NOTE | 2018-10-30 18:12 | DI.CT_ITS ---
SYMPTOM/DIAGNOSIS: LEFT LOWER QUADRANT PAIN CT ABDOMEN AND PELVIS: The study was carried out with intravenous administration of 100 cc Omnipaque 350. The lung bases are unremarkable. The liver is intact. The gallbladder is intact. There are no stones or ductal dilatation. The pancreas, spleen and adrenals are intact. There are parapelvic cysts in the left kidney. There is no evidence of hydronephrosis on the left side and the right kidney is intact. There is no evidence of a mass or hydronephrosis. Mild to moderate wall thickening is noted involving the stomach and entire colon with mild pericolic edema. Distal diverticula are noted. The pattern would be consistent with colitis rather than diverticulitis. There is no evidence of colonic obstruction. No focal pathology is seen in the small bowel. Portions of the proximal descending colon demonstrate no significant wall thickening. The bladder is unremarkable. The reproductive organs as visualized are unremarkable. There is no evidence of intraperitoneal free air or free fluid. No acute bony abnormality is seen. A small fat containing umbilical hernia is identified and there are bilateral fat containing inguinal hernias. There is no evidence of an aortic aneurysm. No lymphadenopathy is seen. SUMMARY: Mild to moderate rueda colitis is demonstrated. Incidental findings are noted as described above.
[2018-10-30] MEDS: Omnipaque 350 MG/ML 100 ML BTL IJ (18:30)
[2018-10-30 18:52] VITALS: BP 119/79; PULSE 73; RESP 18; TEMP 37; O2SAT 96
--- NOTE | 2018-10-30 18:52 | DI.VRAD_ITS ---
EXAM: CT Abdomen and Pelvis With Contrast EXAM DATE/TIME: 10/30/2018 5:00 PM CLINICAL HISTORY: 53 years old, male; Pain; Abdominal pain; Localized; Left lower quadrant (llq) TECHNIQUE: Imaging protocol: Axial computed tomography images of the abdomen and pelvis with intravenous contrast. Coronal and sagittal reformatted images were created and reviewed. Contrast material: Omnipaque 350 Contrast volume: 100 ml Contrast route: IV COMPARISON: CT ABDOMEN PELVIS W 09/19/2018 8:26 AM FINDINGS: Lower thorax: No acute findings. ABDOMEN: Liver: No mass. Gallbladder and bile ducts: No calcified stones. No ductal dilation. Pancreas: No ductal dilation. No masses. Spleen: No splenomegaly or focal lesions. Adrenals: No mass. Kidneys and ureters: Probable parapelvic cysts in the left kidney. No definite hydronephrosis on the left. No right hydronephrosis. No renal masses. Stomach and bowel: [place]-gb-ceusaabs wall thickening affecting nearly the entire colon with mild pericolic edema. Distal diverticula, pattern consistent with colitis rather than diverticulitis. No colonic obstruction. No focal pathology in the small bowel. Portions of the proximal descending colon demonstrate no significant wall thickening. Appendix: No evidence of appendicitis. PELVIS: Bladder: Unremarkable as visualized. Reproductive: Unremarkable as visualized. ABDOMEN and PELVIS: Intraperitoneal space: No free air. No significant fluid collection. Bones/joints: No acute fracture. No dislocation. Soft tissues: Small fat-containing umbilical hernia. Bilateral fat-containing inguinal hernias. Vasculature: No abdominal aortic aneurysm. Lymph nodes: No significantly enlarged lymph nodes. IMPRESSION: 1. Bstc-zu-grhwvefl near pancolitis. 2. Incidental findings as described. Dictated and Authenticated by: Yenifer Camacho MD. Ordering:HELEN Stack MD
[2018-11-01 12:00] LABS: Campylobacter PCR SEE COMMENTS; Salmonella PCR SEE COMMENTS; Shiga Toxin PCR SEE COMMENTS; Shigella/Enteroinvasive Ecoli SEE COMMENTS
== END 2018-10-30 21:20 | disposition home or self-care (01) ==
PROVIDERS: Emergency Provider Nurse Practitioner Family; PCP Nurse Practitioner Family
DX: A04.72 Enterocolitis due to Clostridium difficile, not specified as recurrent (principal); R10.32 Left lower quadrant pain; I10 Essential (primary) hypertension; K57.30 Diverticulosis of large intestine without perforation or abscess without bleeding
CPT/HCPCS: 36415; 80053; 83690; 87329; 87505; 99285; 74177; 81003; 82272; 83605; 85025; 87324; 99284; J3490

== ENCOUNTER 2019-03-28 08:14 | Outpatient (REF) | payer BC, SELFPAY ==
[2019-03-28 12:31] LABS: Anion Gap 8.3 mmol/L (3-11); BUN 13 mg/dL (7-18); CO2 27.7 mmol/L (21.0-32.0); CREATININE 0.98 mg/dL (0.70-1.30); Calcium 9.3 mg/dL (8.5-10.1); Calculated LDL 106 mg/dL; Chloride 103 mmol/L (98-107); Cholesterol 184 mg/dL (50-200); Glucose 111 mg/dL (70-100); HDL Cholesterol 69 mg/dL (40-60); Potassium 4.5 mmol/L (3.5-5.1); Sodium 139 mmol/L (136-145); Triglyceride 48 mg/dL (30-150)
== END 2019-03-28 08:34 ==
LOC: NCHCN 08:14
PROVIDERS: PCP Nurse Practitioner Family; Visit Provider Nurse Practitioner Family
DX: I10 Essential (primary) hypertension (principal); E78.5 Hyperlipidemia, unspecified
CPT/HCPCS: 80048; 80061

== ENCOUNTER 2020-03-31 14:23 | Outpatient (REF) | payer BC, SELFPAY ==
[2020-04-03 15:18] LABS: Patient Race White; SARS-CoV-2 RNA Undetected (Undetected); SARS-CoV-2 Specimen Source Nasal
== END 2020-03-31 14:43 ==
LOC: NCHCN 14:23
PROVIDERS: PCP Nurse Practitioner Family; Visit Provider Nurse Practitioner Family
DX: Z20.828 Contact with and (suspected) exposure to other viral communicable diseases (principal)
CPT/HCPCS: U0003

== ENCOUNTER 2021-06-05 15:57 | Outpatient (REF) | payer OTHER, SELFPAY ==
[2021-06-05 21:06] LABS: HCT 41.1 % (40.0-50.0); HGB 13.9 g/dL (13.5-17.5); MCH 31.7 pg (27.0-33.0); MCHC 33.8 % (32.0-36.0); MCV 93.8 fL (80-95); MPV 8.5 fL (8.0-11.0); Platelet Count 225 10^3/uL (130-400); RBC 4.38 10^6/uL (4.36-5.78); RDW 12.6 % (11.8-14.1); RDW-SD 43.4 fL; WBC 8.67 10^3/uL (4.4-10.8)
[2021-06-05 21:18] LABS: ALT 30 U/L (16-63); AST 23 U/L (15-37); Albumin 4.1 g/dL (3.4-5.0); Alkaline Phosphatase 71 U/L (46-116); Anion Gap 9.1 mmol/L (3-11); BUN 16 mg/dL (7-18); Bilirubin, Total 0.5 mg/dL (0.2-1.0); CO2 28.9 mmol/L (21.0-32.0); Chloride 105 mmol/L (98-107); Glucose 97 mg/dL (74-106); Hemoglobin A1C 5.3 % (<5.7); Potassium 4.3 mmol/L (3.5-5.1); Sodium 143 mmol/L (136-145); Total Protein 7.2 g/dL (6.4-8.2)
== END 2021-06-05 15:58 | disposition home or self-care (01) ==
LOC: NCHCN 15:57
PROVIDERS: PCP Nurse Practitioner Family; Visit Provider Nurse Practitioner Family
DX: I10 Essential (primary) hypertension (principal); E78.5 Hyperlipidemia, unspecified; R73.9 Hyperglycemia, unspecified
CPT/HCPCS: 80053; 85027; 83036

== ENCOUNTER 2023-06-17 18:12 | Outpatient (REF) | payer OTHER, SELFPAY ==
[2023-06-17 21:10] LABS: Abs Immature Grans 0.06 10^3/uL (0.0-0.06); Absolute Basophil Count 0.15 10^3/uL (0.0-0.2); Absolute Eosinophil Count 0.08 10^3/uL (0.0-0.7); Absolute Lymphocyte Count 1.81 10^3/uL (1.2-3.4); Absolute Monocyte Count 0.82 10^3/uL (0.1-0.8); Absolute Neutrophil Count 6.79 10^3/uL (1.2-6.7); Basophils % 1.5; Eosinophils % 0.8; HCT 43.7 % (40.0-50.0); Immature Grans % 0.6; Lymphocytes % 18.6; MCH 31.5 pg (27.0-33.0); MCHC 34.3 % (32.0-36.0); MCV 92 fL (80-95); MPV 8.7 fL (8.0-11.0); Monocytes % 8.4; Neutrophils % 70.1; Platelet Count 212 10^3/uL (130-400); RBC 4.76 10^6/uL (4.36-5.78); RDW 12.7 % (11.8-14.1); RDW-SD 42.6 fL; WBC 9.71 10^3/uL (4.4-10.8)
[2023-06-17 21:27] LABS: ALT 28 U/L (16-63); AST 24 U/L (15-37); Albumin 4.3 g/dL (3.4-5.0); Alkaline Phosphatase 75 U/L (46-116); Anion Gap 9.8 mmol/L (3-11); BUN 16 mg/dL (7-18); Bilirubin, Total 0.6 mg/dL (0.2-1.0); CO2 29.2 mmol/L (21.0-32.0); Calcium 9.4 mg/dL (8.5-10.1); Calculated LDL 165 mg/dL (<100); Chloride 102 mmol/L (98-107); Cholesterol 242 mg/dL (<200); Estimated GFR 88.33 (mL/min/1.73m2); Glucose 102 mg/dL (74-106); HDL Cholesterol 60 mg/dL (40-60); Potassium 4.7 mmol/L (3.5-5.1); Sodium 141 mmol/L (136-145); Total Protein 7.6 g/dL (6.4-8.2); Triglyceride 87 mg/dL (<150)
[2023-06-20 11:10] LABS: PSA, Diagnostic 0.5 ng/mL (<=3.5)
== END 2023-06-17 18:13 | disposition home or self-care (01) ==
LOC: NCHCN 18:12
PROVIDERS: PCP Nurse Practitioner Family; Visit Provider Nurse Practitioner Family
DX: Z00.00 Encounter for general adult medical examination without abnormal findings (principal)
CPT/HCPCS: 80053; 80061; 84153; 85025

== ENCOUNTER 2023-09-01 09:52 | Outpatient (REF) | payer OTHER, SELFPAY ==
--- NOTE | 2023-09-01 08:15 | SKI_PTH ---
PATIENT: Damon Sinha LOC: [facility] U#:[id number] AGE/SX: 58/M ROOM: RE09/01/[address]: Cosmo Lopez MD : 1965 BED: DIS: 09/01/2023 SPEC #: [id number] RECD: 09/01/23 16:38 STATUS: FREDA REAnita #: [id number] NEHA: 09/01/23 08:[address]: Cosmo Lopez DEPT: Surgical Specimen RECD BY: Skye Bello ENTERED: 09/01/23 16:39 SP TYPE: VANE OT DR: Celina Schaeffer Tissues: 1 - SKIN BIOPSY(SHAVE/PUNCH) Procedures: SKIN LEVEL 4 Comments: [id number]
== END 2023-09-01 09:53 | disposition home or self-care (01) ==
LOC: LBN 09:52
PROVIDERS: PCP Nurse Practitioner Family; Visit Provider Otolaryngology
DX: L92.8 Other granulomatous disorders of the skin and subcutaneous tissue (principal)
CPT/HCPCS: 88305

== ENCOUNTER 2024-07-06 22:39 | Observation (INO) | payer OTHER, SELFPAY ==
[2024-07-06 22:42] VITALS: BP 186/136; PULSE 107; RESP 18; TEMP 36.4; O2SAT 96
[2024-07-06] MEDS: Simethicone/Sod Bicarb/Cit Ac, 4 gram PACKET 1 PACKET PO (22:53)
--- NOTE | 2024-07-06 23:05 | W.ED.GENAD ---
Discharge Plan Disposition Patient Disposition: Admit to [facility] Discharge Details Chief Complaint: ThroatFB Clinical Impression: Foreign body in esophagus Attending Provider: Amish Domingo Primary Care Provider: Celina Schaeffer ED Provider: Willi Stack [facility] General Date/Time Provider Initiated Documentation: 07/06/24 22:43. HPI Narrative: The patient is a 59-year-old male, with a self-reported past medical history of frequent esophageal food boluses which typically pass with time, presents to the emergency department this evening complaining of an impacted piece of chicken in his lower esophagus that developed at around 5 PM this evening while eating dinner at a local [employer] establishment. The patient went home and has not been able to handle his secretions, vomiting saliva multiple times throughout the evening. He says that in the past he usually just waits a few hours and the food bolus will pass, but this time it has not. The patient has ongoing active retching and vomiting of mostly clear salivary secretions. The patient has never had to have endoscopy performed to remove a foreign body. Related Data Home Medications ?Medication ?Instructions ?Recorded ?Confirmed losartan 100 mg tablet 100 mg PO DAILY 07/28/23 07/06/24 triamcinolone acetonide 0.1 % 1 applic topical BID 07/28/23 07/06/24 topical cream Allergies Allergy/AdvReac Type Severity Reaction Status Date / Time shrimp Allergy Severe Anaphylaxsi Uncoded 07/06/24 22:46 s General Stated Complaint: ThroatFB KANG: 4 Exam Const General: cooperative and no acute distress Resp Effort & Inspection: normal respiratory effort and able to speak in complete sentences Auscultation: clear to auscultation bilaterally Cardio Rate: tachycardic Rhythm: regular rhythm Heart Sounds: S1 normal and S2 normal GI Palpation: soft Auscultation: normal bowel sounds Neuro General: patient alert, patient awake, patient oriented x3, moves all extremities, no focal motor deficits, CN's II-XI intact bilaterally and normal sensation to monofilament Course Vital Signs Vital signs: Vital Signs Temperature 36.4 C 07/06/24 22:42 Pulse 107 H 07/06/24 22:42 Respiratory Rate 18 07/06/24 22:42 Blood Pressure 186/136 H 07/06/24 22:42 Pulse Oximetry 96 07/06/24 22:42 Temperature 36.4 C 07/06/24 22:42 Temperature Source Tympanic 07/06/24 22:42 Pulse 107 H 07/06/24 22:42 Respiratory Rate 18 07/06/24 22:42 Respiratory Effort Normal, Non-Labored 07/06/24 22:47 Respiratory Pattern Normal 07/06/24 22:47 Blood Pressure 186/136 H 07/06/24 22:42 Blood Pressure Position Sitting 07/06/24 22:42 Pulse Oximetry 96 07/06/24 22:42 Oxygen Delivery Method Room Air 07/06/24 22:42 Oxygen Flow Rate 0 07/06/24 22:42 Pain Level 2 07/06/24 22:42 Medical Decision Making The patient was seen and examined. He appears to have an obstructed esophagus for several hours now. The patient was initially given an effervescent packet which he did not tolerate very well and was then given some oral Coca-Cola to see if this could induce enough eructation to free the food bolus. The patient will be given some IV glucagon to also help see if this alleviates the food bolus. If these are unsuccessful, I will discuss the case with the surgeon on-call to consider other management options including endoscopy. 1230 - I discussed the case with Dr. Domingo from surgery, who will come in to see the patient. Quality:SDOH Health Related Social Needs: No Data to Display PFSH All Active Problems (Updated 07/07/24 @ 02:03 by Willi Stack MD) External nasal lesion (Acute) Aortic ectasia, thoracic (Acute) Vascular ring of aorta (Acute) Umbilical hernia (Acute) S/P colonoscopy (Acute ~04/2018) Had a small perforation- treated with IV fluids, bowel rest and antibiotics Diverticulitis large intestine (Acute) Abdominal pain (Acute) Diverticulosis (Chronic) Foreign body in esophagus (Acute) Medical History Lesion of nose Follicular cyst of skin and subcutaneous tissue Exostosis Epidermoid cyst Seborrheic dermatitis Retinal vein occlusion of left eye Atopic dermatitis Visual disturbance Hypertrophic condition of skin Nontraumatic rupture of tendon Essential hypertension Nicotine dependence H/O Clostridium difficile infection (~10/30/18) Tobacco abuse Over weight HTN (hypertension) Hyperlipidemia Diarrhea Plantar fasciitis Anxiety Alcohol abuse Surgical History History of tonsillectomy and adenoidectomy H/O esophagogastroduodenoscopy Social History Smoking/Tobacco Use Status: Former Tobacco Use Smokeless tobacco user: chewing tobacco Quit status: not considering quitting Counseling given: patient declined Smoking risk assessment performed?: Yes Alcohol Intake: current Alcohol Intake frequency: 3 or more drinks per day Alcohol type: beer Drug use: Daily Substance use type: marijuana Adopted: Yes Housing: house Do you feel safe in your relationship?: Yes PAWSS Have you Been Recently Intoxicated or Drunk Within the Last 30 days?: No Have you Ever Experienced Previous Episodes of Alcohol Withdrawal?: No Have you ever Experienced Withdrawal Seizures?: No Have you ever Experienced Delirium Tremens(DT)s?: No Have you ever undergone Alcohol Rehabilitation Treatment (i.e, inpt ot outpatient treatment programs)?: No Have you ever Experienced Blackouts?: No Have you ever Combined Alcohol with other Downers within the last 90 days?: No Have you ever Combined Alcohol with any other Substance of Abuse during the last 90 days?: No Positive Blood Alcohol level on Presentation? [PCS.BAL]: No Evidence of Increased Autonomic Activity (i.e. HR>120, tremor, sweating, agitation, nausea)?: No Result: 0
[2024-07-06] MEDS: Normal Saline Flush 10 ML SYR IVP (23:13)
[2024-07-06] MEDS: Water,Injection,Sterile 10 ML VIAL (23:13)
[2024-07-06] MEDS: Glucagon 1 MG VIAL IVP (23:13)
--- NOTE | 2024-07-07 01:08 | W.PM.HP.N ---
Date of service: 07/07/24 Time of Service: 01:08 Assessment and Plan Assessment and plan (1) Foreign body in esophagus: Status: Acute Assessment and plan: This certainly seems most consistent with a retained food bolus in the esophagus. Although he is able to protect his airway at this point, it seems like he is an progressive difficulty managing liquids, and I do worry that this would become more clinically significant without intervention at this point. I explained the role of endoscopy and clearance of the esophagus as well as the risks and the benefits of the procedure. I think he has a good understanding of this. Have notified the OR team, we will proceed with emergency EGD as soon as room is available. History of Present Illness History of Present Illness Chief Complaint: Esophageal foreign body Narrative: Damon is 59 years old. He was out at a restaurant eating some food tonight when he noticed the acute onset of upper chest or lower neck discomfort associated with his swallowing. He feels like food is stuck in his esophagus. This is never happened to him before. He stopped eating, and went home and tried to give it some time. He was able to manage a little bit of liquid around it initially, but the discomfort turned into pain, and since then he has not been able to successfully swallow any liquids. He is managing his secretions okay, spitting only occasionally, he denies any difficulty breathing. He does feel like he has some difficulty swallowing from time to time. As he understands it, it has been blamed on gastroesophageal reflux disease, although he denies other symptoms consistent with GERD. He is not medicated for it. Past medical history is significant for diverticulosis. He had a perforation secondary to colonoscopy that was managed nonoperatively. 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 Review of Systems Constitutional Constitutional: Denies fever(s), Denies poor appetite and Denies weight loss Eyes Eyes: Reports system reviewed and no additional complaints, except as documented ENT Ears, Nose, Mouth, and Throat: Reports system reviewed and no additional complaints, except as documented, Reports odynophagia (Secondary to foreign body) and Reports sore throat (Secondary to the foreign body) Cardiovascular Cardiovascular: Denies chest pain and Denies dyspnea Respiratory Respiratory: Denies chest congestion, Reports cough, Denies dyspnea and Denies wheezing Gastrointestinal Gastrointestinal: Reports odynophagia (Secondary to foreign body) Genitourinary Genitourinary: Reports system reviewed and no additional complaints, except as documented Musculoskeletal Musculoskeletal: Reports system reviewed and no additional complaints, except as documented Integumentary/Breasts Skin/Breast: Reports system reviewed and no additional complaints, except as documented Endocrine Endocrine: Reports system reviewed and no additional complaints, except as documented Hematologic/Lymphatic Hematologic/Lymphatic: Denies easy bleeding and Denies easy bruising Allergic/Immunologic Allergic/Immunologic: Denies wheezing PFSH All Active Problems External nasal lesion (Acute) Aortic ectasia, thoracic (Acute) Vascular ring of aorta (Acute) Umbilical hernia (Acute) S/P colonoscopy (Acute ~04/2018) Had a small perforation- treated with IV fluids, bowel rest and antibiotics Diverticulitis large intestine (Acute) Abdominal pain (Acute) Diverticulosis (Chronic) Foreign body in esophagus (Acute) Medical History Lesion of nose Follicular cyst of skin and subcutaneous tissue Exostosis Epidermoid cyst Seborrheic dermatitis Retinal vein occlusion of left eye Atopic dermatitis Visual disturbance Hypertrophic condition of skin Nontraumatic rupture of tendon Essential hypertension Nicotine dependence H/O Clostridium difficile infection (~10/30/18) Tobacco abuse Over weight HTN (hypertension) Hyperlipidemia Diarrhea Plantar fasciitis Anxiety Alcohol abuse Surgical History History of tonsillectomy and adenoidectomy H/O esophagogastroduodenoscopy Social History Smoking/Tobacco Use Status: Former Tobacco Use Smokeless tobacco user: chewing tobacco Quit status: not considering quitting Counseling given: patient declined Smoking risk assessment performed?: Yes Alcohol Intake: current Alcohol Intake frequency: 3 or more drinks per day Alcohol type: beer Drug use: Daily Substance use type: marijuana Adopted: Yes Housing: house Do you feel safe in your relationship?: Yes Meds Allergies and Home Medications Allergies Allergy/AdvReac Type Severity Reaction Status Date / Time shrimp Allergy Severe Anaphylaxsi Uncoded 07/06/24 22:46 s Home Medications ?Medication ?Instructions ?Recorded ?Confirmed ?Type losartan 100 mg tablet 100 mg PO DAILY 07/28/23 07/06/24 History triamcinolone acetonide 0.1 % 1 applic topical BID 07/28/23 07/06/24 History topical cream Exam Const General: cooperative and anxious Nutritional Appearance: overweight Orientation: alert, awake and oriented x3 HENMT Head: normal to inspection Mouth: oral mucosae normal Eyes General: appearance normal, both eyes and all related structures Neck Neck: normal visual inspection, full ROM, no lymphadenopathy and trachea midline Thyroid: thyroid normal Chest Chest: normal inspection of the chest Resp Effort & Inspection: normal respiratory effort and able to speak in complete sentences Auscultation: clear to auscultation bilaterally Cardio Rate: regular rate Rhythm: regular rhythm Heart Sounds: S1 normal and S2 normal GI Inspection: normal to inspection Palpation: soft Skin General skin exam: no rashes or lesions noted Neuro General: patient alert, patient awake and patient oriented x3 Extrem Right lower extremity: no cyanosis and no edema Left lower extremity: no cyanosis and no edema Results Last Vital Signs Temp 97.6 F 07/06/24 22:42 Pulse 107 H 07/06/24 22:42 Resp 18 07/06/24 22:42 BP 186/136 H 07/06/24 22:42 Pulse Ox 96 07/06/24 22:42 PAWSS Have you Been Recently Intoxicated or Drunk Within the Last 30 days?: No Have you Ever Experienced Previous Episodes of Alcohol Withdrawal?: No Have you ever Experienced Withdrawal Seizures?: No Have you ever Experienced Delirium Tremens(DT)s?: No Have you ever undergone Alcohol Rehabilitation Treatment (i.e, inpt ot outpatient treatment programs)?: No Have you ever Experienced Blackouts?: No Have you ever Combined Alcohol with other Downers within the last 90 days?: No Have you ever Combined Alcohol with any other Substance of Abuse during the last 90 days?: No Positive Blood Alcohol level on Presentation? [PCS.BAL]: No Evidence of Increased Autonomic Activity (i.e. HR>120, tremor, sweating, agitation, nausea)?: No Result: 0 Time Spent Time spent with Patient: 40-54 minutes Time was spent: preparing to see the patient(eg.review tests), obtaining and/or reviewing separately otained hiistory, referring, communicating with other health doggy daycare activities director, indepentently interpreting results, counseling the patient and care coordination
--- NOTE | 2024-07-07 01:33 | SUR.PREOP ---
pre-op papers done, surgeon spoke to the pt and consent signed. pt undressed, urinated and awaiting OR to call
--- NOTE | 2024-07-07 01:55 | ANES.PREOP_ITS ---
General Info Date of Service Date Performed: 07/07/24 Height: 5 ft 11 in Weight: 113.398 kg Body Mass Index (BMI): 34.8 Surgical Procedure: Operation Date: 07/07/24 01:50 Proposed Procedure Side Surgeon p Gastroscopy Not Applicable Amish Domingo MD Meds Allergies and Home Medications Allergies Allergy/AdvReac Type Severity Reaction Status Date / Time shrimp Allergy Severe Anaphylaxsi Uncoded 07/06/24 22:46 s Home Medication ?Medication ?Instructions ?Recorded losartan 100 mg tablet 100 mg PO DAILY 07/28/23 triamcinolone acetonide 0.1 % 1 applic topical BID 07/28/23 topical cream Current Visit Medications: Current Medications Generic Name Dose Route Start Last Admin Trade Name Freq PRN Reason Stop Dose Admin IV Miscellaneous Supplies 1 each 07/06/24 22:45 Iv Access-Emergency Dept IV DIRECTED HOLLY Sodium Chloride 0 ml 07/06/24 22:45 07/06/24 23:13 Normal Saline Flush 10 Ml Syr IVP 10 ml PRN PRN Administration Sodium Chloride 0 ml 07/07/24 08:30 Normal Saline Flush 10 Ml Syr IVP BID HOLLY Sodium Chloride 0 ml 07/06/24 22:45 Normal Saline 10 Ml Vial IJ DIRECTED PRN PFSH Active Problems Active Problems: Problem Status Onset Code External nasal lesion Acute L98.9 Aortic ectasia, thoracic Acute I77.810 Vascular ring of aorta Acute Q25.45 Umbilical hernia Acute K42.9 S/P colonoscopy Acute ~04/2018 Z98.890 Diverticulitis large intestine Acute Bowel perforation Resolved ~05/10/18 K63.1 Abdominal pain Acute R10.9 Diverticulosis Chronic K57.90 Colorectal polyps Resolved K63.5 Foreign body in esophagus Acute T18.108A History of Surgical Procedure Resolved Z98.89 Medical History Medical History Lesion of nose Follicular cyst of skin and subcutaneous tissue Exostosis Epidermoid cyst Seborrheic dermatitis Retinal vein occlusion of left eye Atopic dermatitis Visual disturbance Hypertrophic condition of skin Nontraumatic rupture of tendon Essential hypertension Nicotine dependence H/O Clostridium difficile infection (~10/30/18) Tobacco abuse Over weight HTN (hypertension) Hyperlipidemia Diarrhea Plantar fasciitis Anxiety Alcohol abuse Surgical History Surgical History History of tonsillectomy and adenoidectomy H/O esophagogastroduodenoscopy Tobacco Smoking/Tobacco Use Status: Former Tobacco Use Smokeless tobacco user: chewing tobacco Counseling given: patient declined Alcohol Alcohol Intake: current Alcohol intake frequency: 3 or more drinks per day Alcohol type: beer Substance Use Substance use: Daily Substance use type: marijuana Vital Signs and Lab Results Vital Signs Most Recent Vital Signs in EMR: Most Recent Vital Signs Temp Pulse Resp BP Pulse Ox 36.4 C 107 H 18 186/136 H 96 07/06/24 22:42 07/06/24 22:42 07/06/24 22:42 07/06/24 22:42 07/06/24 22:42 Lab Results Blood Type / Crossmatch: No Data to Display Complete Blood Count: No Data to Display Complete Metabolic Panel: No Data to Display Liver Function Panel: No Data to Display Coagulation Panel: No Data to Display Cardiac Panel: No Data to Display Arterial Blood Gas: No Data to Display Venous Blood Gas: No Data to Display Pancreas Panel: No Data to Display Thyroid Panel: No Data to Display Infectious Disease: No Data to Display Blood Cultures: No Data to Display Toxicology Panel: No Data to Display Imaging and Studies Imaging and Studies Study information below may be from another EMR and interpreted by another provider. Please see original notes in EMR for more complete details. Echocardiogram Summary: Patient Name: JACEK FRAGA Unit #: [id number] Loc: DI Ordering Provider: Pricilla Sevilla Status: [facility] Primary Care Provider: Pricilla Sevilla Date of Exam: 10/13/18 Sex: M : 1965 Age: 53 Exam(s) a US:US echocardiogram *[facility]* *[facility]* [address] [place] [address] Date of study: 10/13/2018 Transthoracic Echocardiography M-mode, complete 2D, complete spectral Doppler, and color Doppler *STUDY CONCLUSIONS* Summary: 1. Left ventricle: The cavity size was normal. Wall thickness was normal. Systolic function was normal. The estimated ejection fraction was 55-60%. Wall motion was normal; there were no regional wall motion abnormalities. 2. Right ventricle: The cavity size was normal. Systolic function was normal. 3. Left atrium: The atrium was mildly dilated. 4. Aortic valve: Trileaflet; mildly thickened, mildly calcified leaflets. There was trivial regurgitation. 5. Aortic root: The aortic root was mildly dilated (41 mm). 6. Ascending aorta: The ascending aorta was at upper normal limits (38 mm). 7. Inferior vena cava: The vessel was normal in size. The respirophasic diameter changes were in the normal range (greater than or equal to 50%), consistent with normal central venous pressure. *PATIENT PRESENTATION* Height: 180.3cm ((71in) ) S/D Pressure: 117 / 80 Weight: 108.9kg ((239.5lb) ) BSA: 2.37m^2 Test start time: 10:30 AM. Test stop time: 11:20 AM. PERFORMING Unknown ORDERING Pricilla Sevilla Aprn REFERRING Pricilla Sevilla Aprn PERFORMING [facility] W[employer]IL PUMP OPERATOR Alexandrea Thornton *PROCEDURE DATA* Procedure information: This study was interpreted by [facility]. Pertinent images and digital data are archived for permanent storage and are available for subsequent review. No prior study was available for comparison. Study status: Routine. Transthoracic echocardiography. M-mode, complete 2D, complete spectral Doppler, and color Doppler. A Transthoracic Echocardiogram was performed. Scanning was performed from the parasternal, apical, subcostal, and suprasternal notch acoustic windows. Images were obtained using an [employer] 2000 cardiac ultrasound machine. Image quality was adequate. Study completion: The patient tolerated the procedure well. There were no complications. History: PMH: Aortic Dilation. *CARDIAC ANATOMY* Left ventricle: The cavity size was normal. Wall thickness was normal. Systolic function was normal. The estimated ejection fraction was 55-60%. Wall motion was normal; there were no regional wall motion abnormalities. Aortic valve: Trileaflet; mildly thickened, mildly calcified leaflets. Mobility was not restricted. Doppler: Transvalvular velocity was within the normal range. There was no stenosis. There was trivial regurgitation. VTI ratio of LVOT to aortic valve: 0.91. Valve area (VTI): 3.1cm^2. Indexed valve area (VTI): 1.3cm^2/m^2. Peak velocity ratio of LVOT to aortic valve: 0.87. Valve area (Vmax): 3cm^2. Indexed valve area (Vmax): 1.3cm^2/m^2. Mean velocity ratio of LVOT to aortic valve: 0.82. Valve area (Vmean): 2.8cm^2. Indexed valve area (Vmean): 1.2cm^2/m^2. Mean gradient (S): 3mm Hg. Peak gradient (S): 6.4mm Hg. Aorta: Aortic root: The aortic root was mildly dilated (41 mm). Ascending aorta: The ascending aorta was at upper normal limits (38 mm). Mitral valve: Structurally normal valve. Mobility was not restricted. Doppler: Transvalvular velocity was within the normal range. There was no evidence for stenosis. There was trivial regurgitation. Valve area by pressure half-time: 3.6cm^2. Indexed valve area by pressure half-time: 1.5cm^2/m^2. Left atrium: The atrium was mildly dilated. Right ventricle: The cavity size was normal. Systolic function was normal. Pulmonic valve: Poorly visualized. Doppler: Transvalvular velocity was within the normal range. There was no evidence for stenosis. There was no significant regurgitation. Tricuspid valve: Structurally normal valve. Doppler: Transvalvular velocity was within the normal range. There was no evidence for stenosis. There was trivial regurgitation. Pulmonary artery: Poorly visualized. Systolic pressure could not be accurately estimated. Right atrium: The atrium was normal in size. Pericardium: There was no pericardial effusion. Systemic veins: Inferior vena cava: The vessel was normal in size. The respirophasic diameter changes were in the normal range (greater than or equal to 50%), consistent with normal central venous pressure. Measurements Left ventricle Value Reference LV ID, ED, PLAX 5.3 cm 3.5 - 6.0 LV ID, ES, PLAX 3.6 cm 2.1 - 4.0 LV PW thickness, ED, PLAX 1.0 cm LV end-diastolic volume, 1-p A2C 107 ml LV ejection fraction, 1-p A2C 51 % LV end-diastolic volume, 1-p A4C 120 ml LV ejection fraction, 1-p A4C 59 % LV e', lateral 0.113 m/sec LV E/e', lateral 5 LV e', medial 0.115 m/sec LV E/e', medial 5 LV e', average 0.114 m/sec LV E/e', average 5 Ventricular septum Value Reference IVS thickness, ED, PLAX 1.0 cm LVOT Value Reference LVOT ID, A-P 2.1 cm LVOT area 3.5 cm^2 LVOT peak velocity, S 1.1 m/sec LVOT mean velocity, S 0.66 m/sec LVOT VTI, S 22.8 cm LVOT peak gradient, S 4.9 mm Hg LVOT mean gradient, S 2.2 mm Hg Stroke volume (SV), LVOT DP 79 ml Stroke index (SV/bsa), LVOT DP 33 ml/m^2 Aortic valve Value Reference Aortic valve peak velocity, S 1.3 m/sec Aortic valve mean velocity, S 0.8 m/sec Aortic valve VTI, S 25.0 cm Aortic mean gradient, S 3 mm Hg Aortic peak gradient, S 6.4 mm Hg VTI ratio, LVOT/AV 0.91 Aortic valve area, VTI 3.1 cm^2 Velocity ratio, peak, LVOT/AV 0.87 Aortic valve area, peak velocity 3 cm^2 Velocity ratio, mean, LVOT/AV 0.82 Aortic valve area, mean velocity 2.8 cm^2 Aortic valve area/bsa, mean velocity 1.2 cm^2/m^2 Aorta Value Reference Aortic root ID, ED 4.1 cm Ascending aorta ID, A-P, S 3.7 cm Left atrium Anesthesia Assessment and Plan Anesthesia History Personal History: No History of Anesthesia Complications Family History: No Family History of Anesthesia Complications Exercise Tolerance Exercise Tolerance: Metabolic Equivalents>4 Pertinent Negatives Pertinent Negatives: No Symptoms of GERD, No Major Pulmonary Symptoms or Complaints and No History of CVA/TIA Cardiac & Pulmonary Exam Cardiac Exam: Normal S1/S2 Heart Sounds Pulmonary Exam: Clear Bilateral Breath Sounds Implantable Cardiac Device Does patient have a Pacemaker or an ICD?: No Airway Exam Known Difficult Airway: No Mallampati Class: 2 Mouth Opening: Normal (> 3cm) Thyromental Distance: Greater than 3 cm Facial Hair: Full [place] Neck Range of Motion: Full ROM Neck Circumference: Normal Teeth Condition: Normal Dentition ASA Classification ASA Score: ASA 2 Emergency Case?: Yes NPO Status NPO Status: Full Stomach Anesthesia Plan Resuscitation Status: Full Code Anesthesia Technique: General Anesthesia Airway Planned: Endotracheal Tube Monitors Used: Standard Monitors
[2024-07-07 01:56] VITALS: BMI 34.8
[2024-07-07] MEDS: Lactated Ringers 1,000 ML 30 ML IV (02:04)
[2024-07-07 03:05] VITALS: BP 117/76; PULSE 99; RESP 21; TEMP 36.6; O2SAT 96
--- NOTE | 2024-07-07 03:07 | W.PM.ENDDOP ---
Date of service: 07/07/24 Time of Service: 03:07 Endoscopy Report DATE OF PROCEDURE: 07/07/24 PRE-OP DIAGNOSIS: Impacted esophageal food bolus POST-OP DIAGNOSIS: same PROCEDURE: EGD with retrieval of food bolus SURGEON: Amish Domingo ESTIMATED BLOOD LOSS: 0 PATHOLOGY: none sent COMPLICATIONS: None DISPOSITION: PACU INDICATIONS: Misael is a 59-year-old male with acute onset of dysphagia and difficulty managing secretions swallowing that seems consistent with a retained esophageal food bolus PROCEDURE START TIME: :11 PROCEDURE END TIME: :57 FINDINGS: Patulous and slightly tortuous esophagus with mild extrinsic compression around 20 cm from the esophagus and retained food bolus through the lower esophagus PROCEDURE DESCRIPTION: After the initiation of general endotracheal anesthesia, and with the assistance of a bite block, I advanced a standard gastroscope through the mouth past the hypopharynx and into the esophagus.? Under the direct vision of the scope, I advanced down the esophagus towards the stomach.? Beginning around 16 cm from the incisors was evidence of retained food product in the esophagus. The endoscopic Mario grasper was used to remove this. Unfortunately, the food was quite friable and multiple passes were required in order to safely clear the mid to lower portion of the esophagus. There was some evidence of extrinsic compression of the esophagus beginning around 20 cm from the incisors, but I do not believe this was the cause of the obstruction, as there was a column of food below this as well. I continued removing food product down towards the GE junction. Around 36 cm from the incisors the esophagus did have a bit of angulation, and there were larger portions of food stuck here. Again, using multiple passes of the EGD, and with the assistance of the Mario device all of this was removed until I was able to advance through the GE junction into the stomach around 40 cm from the incisors. Mucosa was a little bit erythematous down in this area. I did not see any discrete masses or ulceration. I was able to insufflate the stomach completely, and there was a large portion of more firm food product sitting within the stomach. I suspect this was the source of the impaction at the GE junction. A brief survey of the stomach was conducted. The pylorus, antrum, main portion of the gastric body all appeared normal and healthy. I brought the camera back up into the esophagus proper, and passed it up and down along the length of the esophagus again. The esophagus itself did appear little bit patulous, and I wonder if there is an element of achalasia which may be contributing to this. I irrigated and suction cleared the length of the esophagus 1 last time. I then delivered the camera back down into the stomach proper and emptied all of the insufflation prior to removing the camera. The patient was then woken from anesthesia, extubated, and transferred to the recovery unit.
[2024-07-07 03:10] VITALS: BP 119/73; PULSE 97; RESP 21; TEMP 36.6; O2SAT 97
[2024-07-07 03:15] VITALS: BP 127/74; PULSE 95; RESP 18; TEMP 36.5; O2SAT 97
--- NOTE | 2024-07-07 03:16 | W.ANESPOSTOP ---
Postoperative Evaluation Date, Time and Location Date Performed: 07/07/24 Time Performed: 03:17 Patient Location: PACU Vital Signs Most Recent Imported Vital Signs: Most Recent Vital Signs Temp Pulse Resp BP Pulse Ox 36.5 C 95 H 18 127/74 97 07/07/24 03:15 07/07/24 03:15 07/07/24 03:15 07/07/24 03:15 07/07/24 03:15 Pain Score Most Recent Pain Score: Most Recent Pain Score Pain Level 0 07/07/24 03:15 Assessment Mental Status: Arousable with meaningful communication Airway and Respiratory Function: Patent airway with normal (patient baseline) respiratory exam Cardiovascular Function: Hemodynamically Stable Hydration Status: Adequately Hydrated Nausea & Vomiting: No Nausea or Vomiting Pain: Pt. Denies Any Pain Peripheral Nerve Block: Patient did not receive a nerve block Postoperative Comments:: Heading to ICU as Med/Surg overflow
[2024-07-07 03:20] VITALS: BP 113/71; PULSE 90; RESP 16; TEMP 36.6; O2SAT 95
[2024-07-07 03:39] VITALS: BP 127/86; PULSE 88; RESP 20; TEMP 36.5; O2SAT 93
--- NOTE | 2024-07-07 08:24 | PDOC.CMIN ---
Date of service: 07/07/24 Time of Service: 08:25 Care Management Initial Assmt Initial Assessment Reason for Hospitalization: foreign body in esophogus Functional Status/Living Situation Patient Presentation: Damon was admitted early this morning with c/o inability to swallow liquids. He was out at a restaurant eating some food when he noticed the acute onset of upper chest or lower neck discomfort associated with his swallowing. He felt like food is stuck in his esophagus. He went to the OR for an emergency EGD. Town of Residence: [place] Instrumental Activities of Daily Living (ADLs): Independent Medications Medication Management: No Issues/Barriers identified Advance Directives Advance Directives: Do you have an Advance Directive: N 07/20/23 14:38 AD On File at [facility]: N 07/20/23 14:38 Date Asked 07/06/24 07/06/24 22:43 AD Date Reviewed COLST On File at [facility] No 07/06/24 22:43 COLST Date Scanned Code Status Resuscitation Status Full Code Insurance Coverage/Financial Issues Insurance: CBA Care Team Visit Care Team Role Provider Type Celina Maksim Primary Care Provider NURSE PRACTITIONER Willi Stack MD Emergency Provider [facility] STAFF PHYSICIAN Amish Domingo MD Admit Provider [facility] STAFF PHYSICIAN Attending Provider Discharge Potential Discharge Needs: PCP F/U Appt Anticipated Barriers to Discharge: None Identified Patient/Family Education Needs: Review discharge instructions, discuss Ask Me Three Transportation: Private vehicle Plan: Anticipate that Damon will be discharged later today or tomorrow, once he is able to swallow successfully. He will f/u with his PCP and continue per his plan of care. CM will continue to follow. PFSH All Active Problems (Updated 07/07/24 @ 02:03 by Willi Stack MD) External nasal lesion (Acute) Aortic ectasia, thoracic (Acute) Vascular ring of aorta (Acute) Umbilical hernia (Acute) S/P colonoscopy (Acute ~04/2018) Had a small perforation- treated with IV fluids, bowel rest and antibiotics Diverticulitis large intestine (Acute) Abdominal pain (Acute) Diverticulosis (Chronic) Foreign body in esophagus (Acute) Medical History Lesion of nose Follicular cyst of skin and subcutaneous tissue Exostosis Epidermoid cyst Seborrheic dermatitis Retinal vein occlusion of left eye Atopic dermatitis Visual disturbance Hypertrophic condition of skin Nontraumatic rupture of tendon Essential hypertension Nicotine dependence H/O Clostridium difficile infection (~10/30/18) Tobacco abuse Over weight HTN (hypertension) Hyperlipidemia Diarrhea Plantar fasciitis Anxiety Alcohol abuse Surgical History History of tonsillectomy and adenoidectomy H/O esophagogastroduodenoscopy Social History Smoking/Tobacco Use Status: Former Tobacco Use Smokeless tobacco user: chewing tobacco Quit status: not considering quitting Counseling given: patient declined Smoking risk assessment performed?: Yes Alcohol Intake: current Alcohol Intake frequency: 3 or more drinks per day Alcohol type: beer Drug use: Daily Substance use type: marijuana Adopted: Yes Housing: house Do you feel safe in your relationship?: Yes SDOH(Care Management) Screening Will the Patient Participate in the Screening?: Unable to obtain
[2024-07-07 08:27] VITALS: BP 133/96; PULSE 89; PULSE 91; RESP 24; TEMP 36.7; O2SAT 94
[2024-07-07] MEDS: Losartan 50 MG TAB 100 MG PO (08:27)
[2024-07-07] MEDS: Normal Saline Flush 10 ML SYR IVP (08:27)
--- NOTE | 2024-07-07 09:55 | W.PM.DS.N ---
Date of service: 07/07/24 Time of Service: 09:56 DS: Diagnosis Discharge Diagnosis (1) Foreign body in esophagus: Status: Acute Asessment and Plan: Status post EGD with retrieval of retained food bolus in the esophagus Discharge Plan Disposition Patient Disposition: Home Condition: Good Discharge Details Reason For Visit: Retained esophageal food bolus Admit Date/Time: 07/07/24 03:16 Admit Provider: Amish Domingo Attending Provider: Amish Domingo Primary Care Provider: Celina Schaeffer Hospital Course Hospital Course: Damon is a 59-year-old male who had acute onset of globus sensation with dysphagia. He had increasing difficulty managing swallow secretions, and came to the emergency department. Nonoperative measurements failed to clear the esophagus, and he was brought to the operating room for EGD and retrieval of retained food bolus. He tolerated the procedure well, and was able to tolerate liquids without any significant symptoms. He was discharged home with outpatient follow-up if desired Home Meds and New Rx's Prescriptions: Continued losartan 100 mg tablet 100 mg PO DAILY triamcinolone acetonide 0.1 % cream 1 applic topical BID Discharge Instructions Instructions: Thickening Liquids for Dysphagia Diet Additional Instructions: Damon, it was nice to meet you, although I am sorry it was at the hospital. I am glad that your symptoms have improved. Like we talked about after the procedure, there are number of different things that can cause difficulty swallowing. I hope it is something as simple as more effective chewing, but as I mentioned, there are other diagnoses that can cause the symptoms, and different options in terms of treatment. I do think that sticking with some liquids, or pur?ed style food may be most comfortable in the days to come. I usually recommend after an EGD with retrieval of food from the esophagus that patient stick with straight liquid diet for about 2 to 3 days. So long as they are asymptomatic, then progress up through things that a person might typically eat with a spoon such as cream of wheat, oatmeal, Jell-O's, puddings, etc. Obviously, most of this depends on how it feels when you swallow. As you said, I would also encourage you to be very diligent with how you are chewing your food. Make sure that the food is completely macerated before you start to swallow it down. Drinking plenty of water with your meals should help this as well. If you do want a move forward with any other diagnostic testing or follow-up, please do not hesitate to call my office at [phone]. Activity:: Activity as Tolerated Equipment/Supplies:: No Equipment Needed Diet:: As Tolerated DS: Summary Time Spent with Patient providing and/or coordinating discharge services: Less than 30 minutes Status at Discharge Functional status at discharge: independent ambulation Overall status at discharge: patient is back to baseline Mental Status: mental status grossly normal Speech and Movement: speech and movement normal Mood: congruent mood Affect: normal affect Quality:SDOH Health Related Social Needs: No Data to Display Exam Psych Mental Status: mental status grossly normal Speech and Movement: speech and movement normal Mood: congruent mood Affect: normal affect DS: Data Vitals/I&O Vitals and I&O: Vital Signs Temperature 98.1 F 07/07/24 08:27 Temperature Source Tympanic 07/06/24 22:42 Pulse 89 07/07/24 08:27 Pulse 91 H 07/07/24 08:27 Respiratory Rate 24 07/07/24 08:27 Respiratory Effort Normal, Non-Labored 07/07/24 03:50 Respiratory Depth Normal 07/07/24 03:50 Respiratory Pattern Normal 07/07/24 03:50 Blood Pressure 133/96 H 07/07/24 08:27 Blood Pressure Mean 107 07/07/24 08:27 Blood Pressure Position Sitting 07/06/24 22:42 Pulse Oximetry 94 07/07/24 08:27 Oxygen Delivery Method Room Air 07/07/24 03:50 Oxygen Flow Rate 0 07/07/24 03:50 Pain Level 0 07/07/24 03:50 Intake & Output 07/06/24 07/06/24 07/07/24 11:59 23:59 11:59 Intake Total 1865.5 / 1865.5 Output Total 200 / 200 Balance 1665.5 / 1665.5 Weight 250 lb 250 lb Intake: IV 855.5 / 855.5 Oral 1010 / 1010 Output: Urine 200 / 200 Other: Urine Color Light Olga Urine Appearance Clear Emesis Description None PFSH All Active Problems External nasal lesion (Acute) Aortic ectasia, thoracic (Acute) Vascular ring of aorta (Acute) Umbilical hernia (Acute) S/P colonoscopy (Acute ~04/2018) Had a small perforation- treated with IV fluids, bowel rest and antibiotics Diverticulitis large intestine (Acute) Abdominal pain (Acute) Diverticulosis (Chronic) Foreign body in esophagus (Acute) Medical History Lesion of nose Follicular cyst of skin and subcutaneous tissue Exostosis Epidermoid cyst Seborrheic dermatitis Retinal vein occlusion of left eye Atopic dermatitis Visual disturbance Hypertrophic condition of skin Nontraumatic rupture of tendon Essential hypertension Nicotine dependence H/O Clostridium difficile infection (~10/30/18) Tobacco abuse Over weight HTN (hypertension) Hyperlipidemia Diarrhea Plantar fasciitis Anxiety Alcohol abuse Surgical History History of tonsillectomy and adenoidectomy H/O esophagogastroduodenoscopy Social History Smoking/Tobacco Use Status: Former Tobacco Use Smokeless tobacco user: chewing tobacco Quit status: not considering quitting Counseling given: patient declined Smoking risk assessment performed?: Yes Alcohol Intake: current Alcohol Intake frequency: 3 or more drinks per day Alcohol type: beer Drug use: Daily Substance use type: marijuana Adopted: Yes Housing: house Do you feel safe in your relationship?: Yes Time Spent with Patient Time Spent with Patient: <45 minutes Time was spent: preparing to see the patient(eg.review tests), indepentently interpreting results and counseling the patient
--- NOTE | 2024-07-07 10:03 | W.PM.PROGNOT ---
Date of Service Date of service: 07/07/24 Time of Service: 10:04 Assessment and Plan Assessment and plan (1) Foreign body in esophagus: Status: Acute Assessment and plan: We talked for a little bit about the differential diagnosis for impacted food in the esophagus, ranging from obstructive problems such as strictures to mechanical issues more along the lines of achalasia. At this point, he is fairly convinced that this was just a matter of inadequate chewing, and he does not desire any real specific follow-up. I did explain that he is more than welcome to reach out to the office if he changes his mind. I recommended sticking with liquids for the next 2 to 3 days, and I am happy to see him in the office if he desires any follow-up treatment. Subjective Subjective Interval history since last seen: Damon feels much better this morning, and although he has just a little bit of irritation in the back of his throat, it seems well-managed. He denies any dysphagia with liquids. He would like to be discharged. Objective Last Vital Signs Temp 98.1 F 07/07/24 08:27 Pulse 89 07/07/24 08:27 Resp 24 07/07/24 08:27 BP 133/96 H 07/07/24 08:27 Pulse Ox 94 07/07/24 08:27 PAWSS Have you Been Recently Intoxicated or Drunk Within the Last 30 days?: No Have you Ever Experienced Previous Episodes of Alcohol Withdrawal?: No Have you ever Experienced Withdrawal Seizures?: No Have you ever Experienced Delirium Tremens(DT)s?: No Have you ever undergone Alcohol Rehabilitation Treatment (i.e, inpt ot outpatient treatment programs)?: No Have you ever Experienced Blackouts?: No Have you ever Combined Alcohol with other Downers within the last 90 days?: No Have you ever Combined Alcohol with any other Substance of Abuse during the last 90 days?: No Positive Blood Alcohol level on Presentation? [PCS.BAL]: No Evidence of Increased Autonomic Activity (i.e. HR>120, tremor, sweating, agitation, nausea)?: No Result: 0 Time Spent with Patient Time Spent with Patient: <25 minutes Time was spent: counseling the patient
--- NOTE | 2024-07-07 11:32 | PDOC.CMDIS ---
Date of service: 07/07/24 Time of Service: 08:30 LACE Index Scoring Tool Questions: Length of Stay (in days): 1 Was the patient admitted via the E.D.?: Yes E.D. Visits: 1 Answers: Total Score: 5 Risk of Readmission: Low Risk Care Management Discharge Plan Reason for Hospitalization: foreign body in esophagus Discharge Plan: Damon was discharged this morning. He underwent EGD early this morning to dislodge some food that was stuck in his esophagus. When CM met with him, he was sitting up in the bed. He had eaten breakfast and was eager to go home. He was discharged home with no new services. He was encouraged to follow up with his PCP. He was given instructions on advancing his diet slowly due to having had the EGD. Damon drove himself home. Patient/Family Education Needs: Review of discharge instructions, limitations, diet, activity and plan of care. Review Ask me 3. [facility] Related Social Needs: No Data to Display
== END 2024-07-07 10:20 | disposition home or self-care (01) ==
LOC: ER 22:43 → SUR 07-07 01:55 → ICU 07-07 03:28
PROVIDERS: Admitting Provider Surgery; Emergency Provider Emergency Medicine Emergency Medical Services; PCP Nurse Practitioner Family; Visit Provider Surgery
PROC: 0DJ68ZZ Inspection of Stomach, Via Natural or Artificial Opening Endoscopic (ICD-10-PCS; CPT 43235; principal; 2024-07-07 01:50)
DX: T18.128A Food in esophagus causing other injury, initial encounter (principal); W44.F3XA Food entering into or through a natural orifice, initial encounter; I77.810 Thoracic aortic ectasia; K57.30 Diverticulosis of large intestine without perforation or abscess without bleeding; L21.9 Seborrheic dermatitis, unspecified; F17.210 Nicotine dependence, cigarettes, uncomplicated; I10 Essential (primary) hypertension; E78.5 Hyperlipidemia, unspecified; F41.9 Anxiety disorder, unspecified; F10.10 Alcohol abuse, uncomplicated; F12.90 Cannabis use, unspecified, uncomplicated
CPT/HCPCS: 43247; 96374; 99285; G0378; J1100; J1610; J2405; J2704; J3010

== ENCOUNTER 2024-08-02 21:17 | Outpatient (REF) | payer OTHER, SELFPAY ==
[2024-08-02 22:06] LABS: HCT 44.1 % (40.0-50.0); HGB 14.9 g/dL (13.5-17.5); MCH 31.8 pg (27.0-33.0); MCHC 33.8 % (32.0-36.0); MCV 94 fL (80-95); MPV 8.5 fL (8.0-11.0); Platelet Count 228 10^3/uL (130-400); RBC 4.69 10^6/uL (4.36-5.78); RDW-SD 44.3 fL; WBC 7.99 10^3/uL (4.4-10.8)
[2024-08-02 22:07] LABS: ALT 24 U/L (16-63); AST 24 U/L (15-37); Albumin 4.1 g/dL (3.4-5.0); Alkaline Phosphatase 85 U/L (46-116); BUN 15 mg/dL (7-18); Bilirubin, Total 0.58 mg/dL (0.2-1.0); CREATININE 0.9 mg/dL (0.70-1.30); Calcium 9.5 mg/dL (8.5-10.1); Calculated LDL 138 mg/dL (<100); Chloride 103 mmol/L (98-107); Cholesterol 218 mg/dL (<200); Estimated GFR 99.62 (mL/min/1.73m2); Glucose 98 mg/dL (74-106); HDL Cholesterol 55 mg/dL (40-60); Potassium 4.3 mmol/L (3.5-5.1); Sodium 139 mmol/L (136-145); Total Protein 7.3 g/dL (6.4-8.2); Triglyceride 127 mg/dL (<150)
[2024-08-03 18:11] LABS: PSA, Diagnostic 2.1 ng/mL (<=3.5)
== END 2024-08-02 21:18 | disposition home or self-care (01) ==
LOC: NCHCN 21:17
PROVIDERS: PCP Nurse Practitioner Family; Visit Provider Nurse Practitioner Family
DX: Z12.5 Encounter for screening for malignant neoplasm of prostate (principal); Z00.00 Encounter for general adult medical examination without abnormal findings
CPT/HCPCS: 80053; 80061; 85027; 84153